=== PATIENT | female | born 1950 | race Caucasian/White ===

== ENCOUNTER → 2016-08-01 | Outpatient (CLI) | payer OTHER ==
[~2016-08-01] MED LIST: ALBUAER2 INH; AMLO-114 PO; AMT50 PO; ASPCH81X PO; CRS20 PO; CYCL-259 PO; CZR50 PO; FRS/40 PO; GLC500 PO; HYDR-5688 PO; INSU70IN2 SC; LEVO75TA PO
[2016-08-01 10:44] LABS: BASO % 0.5 %; BASO ABS # 0.02 K/uL (0-0.2); COMPLETE YES; EOS % 3.4 %; HEMATOCRIT 36.8 % (37-47); IG% 0.2 %; LYMPH % 39.1 %; LYMPH ABS # 1.62 K/uL (1.2-3.4); MEAN CELL VOLUME 80.5 fL (80-100); MEAN CORPUSCULAR HEMOGLOBIN 25.4 pg (25-34); MEAN CORPUSCULAR HGB CONC 31.5 g/dl (32-36); MEAN PLATELET VOLUME 10.4 fL (7.4-10.4); MONO % 6.8 %; PLATELET COUNT 204 K/uL (130-400); RED BLOOD COUNT 4.57 M/uL (4.2-5.4); WHITE BLOOD COUNT 4.14 K/uL (4.8-10.8)
[2016-08-01 11:39] LABS: ALB/GLOB RATIO 1.2 (0.9-2); ALKALINE PHOSPHATASE 77 U/L (45-117); ALT/SGPT 25 U/L (12-78); AST/SGOT 19 U/L (15-37); BLOOD UREA NITROGEN 16 mg/dl (7-18); BUN/CREATININE RATIO 23.5 (10-20); CALCIUM 9.1 mg/dl (8.5-10.1); CARBON DIOXIDE 27 mmol/L (21-32); CHLORIDE 107 mmol/L (98-107); CHOLESTEROL 171 mg/dl (0-200); CREATININE 0.66 mg/dl (0.60-1.20); GLUCOSE 92 mg/dl (70-99); SODIUM 143 mmol/L (136-145)
[2016-08-01 11:48] LABS: CHOLESTEROL/HDL RATIO 2.2; HDL CHOLESTEROL 78 mg/dl; LDL CHOLESTEROL CALCULATED 72 mg/dl; TRIGLYCERIDES 105 mg/dl (0-150); VERY LOW DENSITY LIPOPROT CALC 21 mg/dl
== END | disposition home or self-care (01) ==
LOC: C.LAB1850 09:51
PROVIDERS: ATTEND Nurse Practitioner Adult Health
DX: E03.9 Hypothyroidism, unspecified (principal); I10 Essential (primary) hypertension; E78.00 Pure hypercholesterolemia, unspecified

== ENCOUNTER → 2016-10-04 | Outpatient (CLI) | payer OTHER ==
--- NOTE | 2016-10-04 13:58 | MAMMOGRAPHY REPORT ---
BILATERAL DIGITAL SCREENING MAMMOGRAM WITH CAD: 10/04/2016 CLINICAL HISTORY: Routine screening. Patient has no complaints. TECHNIQUE: Current study was also evaluated with a Computer Aided Detection (CAD) system. Bilateral CC and MLO views were obtained. COMPARISON: Comparison is made to exams dated: 08/23/2014 mammogram, 06/04/2013 mammogram, 05/15/2011 m ammogram, 12/13/2009 mammogram - [facility], 02/10/2008, and 10/21/2005 mammogram - [facility]. BREAST COMPOSITION: The tissue of both breasts is almost entirely fatty. FINDINGS: No suspicious masses, calcifications, or areas of architectural distortion are noted in ei ther breast. There has been no significant interval change compared to prior exams. Scattered bilater al benign-appearing calcifications are not significantly changed. Small nodular asymmetry in the rig ht lateral posterior breast on the cc view appears similar to the August 2014 exam, and considered dennis gn given long-term stability. IMPRESSION: ACR BI-RADS CATEGORY 2: BENIGN There is no mammographic evidence of malignancy. A 1 year screening mammogram is recommended. The pa tient will receive written notification of the results. Approximately 10% of breast cancers are not detected with mammography. A negative mammographic report should not delay biopsy if a clinically suggestive mass is present. Cele Currie M.D. /:10/04/2016 11:35:39 Will Call Clerk: Karen SMITH)(Gabino), [facility] letter sent: Normal 1/2 BI-RADS Code: ACR BI-RADS Category 2: Benign
== END | disposition home or self-care (01) ==
LOC: C.MAMM 11:12
PROVIDERS: ATTEND Nurse Practitioner Adult Health
DX: Z12.31 Encounter for screening mammogram for malignant neoplasm of breast (principal)

== ENCOUNTER → 2016-11-12 | Outpatient (CLI) | payer OTHER ==
[2016-11-12 10:03] LABS: ALT/SGPT 24 U/L (12-78); BLOOD UREA NITROGEN 10 mg/dl (7-18); BUN/CREATININE RATIO 14.2 (10-20); CALCIUM 9.5 mg/dl (8.5-10.1); CARBON DIOXIDE 27 mmol/L (21-32); CHLORIDE 103 mmol/L (98-107); CHOLESTEROL 175 mg/dl (0-200); CREATININE 0.71 mg/dl (0.60-1.20); GLUCOSE 84 mg/dl (70-99); POTASSIUM 3.5 mmol/L (3.5-5.1); SODIUM 139 mmol/L (136-145)
[2016-11-12 10:13] LABS: ALB/GLOB RATIO 1.3 (0.9-2); ALKALINE PHOSPHATASE 83 U/L (45-117); AST/SGOT 25 U/L (15-37); CHOLESTEROL/HDL RATIO 1.8; HDL CHOLESTEROL 96 mg/dl; LDL CHOLESTEROL CALCULATED 62 mg/dl; TRIGLYCERIDES 86 mg/dl (0-150); VERY LOW DENSITY LIPOPROT CALC 17 mg/dl
[2016-11-12 10:26] LABS: ESTIMATED AVERAGE GLUCOSE 120 mg/dl; HA1C FLAG Normal (Normal)
== END | disposition home or self-care (01) ==
LOC: C.LAB1850 08:28
PROVIDERS: ATTEND Nurse Practitioner Adult Health
DX: I10 Essential (primary) hypertension (principal); E78.00 Pure hypercholesterolemia, unspecified; E03.9 Hypothyroidism, unspecified; E11.9 Type 2 diabetes mellitus without complications

== ENCOUNTER → 2016-12-23 | Outpatient (CLI) | payer OTHER | END | disposition home or self-care (01) | LOC: C.MAMM 11:09 | PROVIDERS: ATTEND Nurse Practitioner Adult Health | DX: Z13.820 Encounter for screening for osteoporosis (principal); M85.851 Other specified disorders of bone density and structure, right thigh; M85.852 Other specified disorders of bone density and structure, left thigh ==

== ENCOUNTER → 2017-04-25 | Outpatient (CLI) | payer OTHER ==
[2017-04-25 09:52] LABS: HEMOGLOBIN A1C 6.1 % (4.5-5.6)
[2017-04-25 09:57] LABS: BLOOD UREA NITROGEN 14 mg/dl (7-18); CREATININE 0.74 mg/dl (0.60-1.20); GLUCOSE 128 mg/dl (70-99)
[2017-04-25 09:58] LABS: ALBUMIN 3.9 gm/dl (3.4-5.0); ALT/SGPT 28 U/L (12-78); CARBON DIOXIDE 28 mmol/L (21-32); CHOLESTEROL 155 mg/dl (0-200); POTASSIUM 3.7 mmol/L (3.5-5.1); SODIUM 137 mmol/L (136-145)
[2017-04-25 10:10] LABS: ALKALINE PHOSPHATASE 76 U/L (45-117); AST/SGOT 22 U/L (15-37); LDL CHOLESTEROL CALCULATED 70 mg/dl; TOTAL PROTEIN 7.4 gm/dl (6.4-8.2)
== END | disposition home or self-care (01) ==
LOC: C.LAB1850 08:31
PROVIDERS: ATTEND Neuromusculoskeletal Medicine & OMM
DX: E78.00 Pure hypercholesterolemia, unspecified (principal); I10 Essential (primary) hypertension; E11.9 Type 2 diabetes mellitus without complications; E03.9 Hypothyroidism, unspecified

== ENCOUNTER 2019-11-12 04:55 | Inpatient (IN) ==
--- NOTE | 2019-10-13 16:05 | PAT Medication Instructions ---
Medication Instructions Date of Service October 13, 2019 Home Medications Medication Instructions Recorded amlodipine 10 mg tablet 10 mg PO DAILY #90 tab 11/18/18 atorvastatin 80 mg tablet 80 mg PO HS #90 tab 11/18/18 furosemide 40 mg tablet 40 mg PO DAILY #90 tab 11/18/18 levothyroxine 75 mcg tablet 75 mcg PO DAILY #90 tab 11/18/18 metformin 1,000 mg tablet 1,000 mg PO BID #180 tab 11/18/18 blood sugar diagnostic #100 ea 02/09/19 insulin human U-100 NPH-regulr 16 units SUBCUT BIDM #20 ml 02/09/19 70-30 mix 100 unit/mL subcutaneous susp amitriptyline 75 mg tablet 75 mg PO HS #90 tab 05/12/19 losartan 100 mg tablet 100 mg PO DAILY #90 tab 05/21/19 hydrocodone 5 mg-acetaminophen 325 1 tab PO TID PRN #90 tab 09/24/19 mg tablet albuterol sulfate 90 mcg/actuation aerosol inhaler 2 puffs INHALATION QID PRN aspirin 81 mg tablet,delayed release 81 mg PO HS amlodipine 10 mg tablet 10 mg PO DAILY atorvastatin 80 mg tablet 80 mg PO HS furosemide 40 mg tablet 40 mg PO DAILY levothyroxine 75 mcg tablet 75 mcg PO DAILY metformin 1,000 mg tablet 1,000 mg PO BID insulin human U-100 NPH-regulr 70-30 mix 100 unit/mL subcutaneous susp 16 units SUBCUT BIDM amitriptyline 75 mg tablet 75 mg PO HS losartan 100 mg tablet 100 mg PO DAILY hydrocodone 5 mg-acetaminophen 325 mg tablet 1 tab PO TID PRN ascorbic acid (vitamin C) 500 mg PO QAM calcium 600 mg PO BID cholecalciferol (vitamin D3) 25 mcg PO QAM multivitamin-iron (hematinic) 1 tab PO HS zinc 25 mg PO HS DO NOT take the morning of surgery furosemide 40 mg tablet 40 mg PO DAILY metformin 1,000 mg tablet 1,000 mg PO BID losartan 100 mg tablet 100 mg PO DAILY ascorbic acid (vitamin C) 500 mg PO QAM calcium 600 mg PO BID cholecalciferol (vitamin D3) 25 mcg PO QAM Take morning of surgery With a small sip of water, OTHERWISE NOTHING TO EAT OR DRINK AFTER MIDNIGHT: albuterol sulfate 90 mcg/actuation aerosol inhaler 2 puffs INHALATION QID PRN (if needed, and bring with you to the hospital) amlodipine 10 mg tablet 10 mg PO DAILY levothyroxine 75 mcg tablet 75 mcg PO DAILY hydrocodone 5 mg-acetaminophen 325 mg tablet 1 tab PO TID PRN (if needed, may be taken up to four hours before surgery) Take evening before surgery albuterol sulfate 90 mcg/actuation aerosol inhaler 2 puffs INHALATION QID PRN (if needed) aspirin 81 mg tablet,delayed release 81 mg PO HS atorvastatin 80 mg tablet 80 mg PO HS metformin 1,000 mg tablet 1,000 mg PO BID insulin human U-100 NPH-regulr 70-30 mix 100 unit/mL subcutaneous susp 16 units SUBCUT BIDM amitriptyline 75 mg tablet 75 mg PO HS hydrocodone 5 mg-acetaminophen 325 mg tablet 1 tab PO TID PRN (if needed) calcium 600 mg PO BID multivitamin-iron (hematinic) 1 tab PO HS zinc 25 mg PO HS Insulin Dependent Diabetic Patients * Test your blood sugar the morning of surgery * If Blood Sugar is GREATER THAN 150, take HALF of your regular dose of: insulin human U-100 NPH-regulr 70-30 mix 100 unit/mL subcutaneous -- TAKE 8 UNITS * If Blood Sugar is LESS THAN 150, DO NOT TAKE ANY: insulin human U-100 NPH- regulr 70-30 mix 100 unit/mL subcutaneous susp Other Notes If you have any questions please call us at [phone] or [phone] or [phone] or [phone]
--- NOTE | 2019-10-14 11:04 | Anesthesiology Consultation ---
Date of Service October 14, 2019 Assessment & Plan (1) Encounter for pre-operative examination: Chart Review Chart Review: Acceptable Risk for Surgery (pending preop Covid testing ) and Patient seen in Pre Admission Testing - Check BSG AM DOS Per PAT appt on 10/14/19, no recent travel. Resides in [facility]. No known Covid positive contacts or Covid related symptoms. Educated patient to follow up with surgeon's office regarding Covid testing. Educated on importance of self quarantining, social distancing and wearing mask in public both for the patient and household contacts. Teaching & Discussion Pre-Anesthesia Teaching/Discussion Notes: Instructed NPO after midnight before surgery,except medications with 15 cc of water. Medication instructions provided according to the PAT guidelines. History Surgery Operation Date: 11/12/19 08:50 Proposed Procedures p Left Reverse Total Shoulder Arthroplasty - Leonard Alvarado, Height/Weight Height: 5 ft 1 in Weight: 99.7 kg Allergies Allergy/AdvReac Type Severity Reaction Status Date / Time Penicillins Allergy Severe throat Verified 10/07/19 08:05 swelled hydrochlorothiazide Allergy Intermediate ELEVATED Verified 10/07/19 08:06 RENIN LEVELS Influenza Virus Vaccines Allergy Intermediate ARMS Verified 10/07/19 08:05 SWELLING/LYMPH NODES SWELLING naproxen Allergy Intermediate elevated Verified 10/07/19 08:05 renin levels sumatriptan Allergy Intermediate bp Verified 10/07/19 08:05 elevated, tachycardia dexamethasone AdvReac Severe SEIZURES Verified 10/07/19 08:05 Medications Home Medications Medication Instructions Recorded Confirmed Last Taken insulin syringe-needle U-100 1 mL #1 ea 08/24/18 07/15/19 Unknown 29 gauge x 1/2" albuterol sulfate 90 mcg/actuation 2 puffs INHALATION QID PRN gm 11/17/18 10/07/19 Unknown aerosol inhaler aspirin 81 mg tablet,delayed 81 mg PO HS tab 11/17/18 10/07/19 Unknown release amlodipine 10 mg tablet 10 mg PO DAILY #90 tab 11/18/18 10/07/19 Unknown atorvastatin 80 mg tablet 80 mg PO HS #90 tab 11/18/18 10/07/19 Unknown furosemide 40 mg tablet 40 mg PO DAILY #90 tab 11/18/18 10/07/19 Unknown levothyroxine 75 mcg tablet 75 mcg PO DAILY #90 tab 11/18/18 10/07/19 Unknown metformin 1,000 mg tablet 1,000 mg PO BID #180 tab 11/18/18 10/07/19 Unknown blood sugar diagnostic #100 ea 02/09/19 07/15/19 Unknown insulin human U-100 NPH-regulr 16 units SUBCUT BIDM #20 ml 02/09/19 10/07/19 Unknown 70-30 mix 100 unit/mL subcutaneous susp amitriptyline 75 mg tablet 75 mg PO HS #90 tab 05/12/19 10/07/19 Unknown losartan 100 mg tablet 100 mg PO DAILY #90 tab 05/21/19 10/07/19 Unknown hydrocodone 5 mg-acetaminophen 325 1 tab PO TID PRN #90 tab 09/24/19 10/07/19 Unknown mg tablet ascorbic acid (vitamin C) [Vitamin 500 mg PO QAM 10/07/19 10/07/19 Unknown C] calcium 600 mg PO BID 10/07/19 10/07/19 Unknown cholecalciferol (vitamin D3) 25 mcg PO QAM 10/07/19 10/07/19 Unknown [Vitamin D3] multivitamin-iron (hematinic) 1 tab PO HS 10/07/19 10/07/19 Unknown zinc 25 mg PO HS 10/07/19 10/07/19 Unknown Past Medical History Medical History Asthma USED RESCUE INHALER LAST YEAR- WELL CONTROLLED AND STABLE Bicuspid aortic valve Suspected biscuspid AV per 2015 ECHO- no significant stenosis noted Cardiac murmur DOES NOT FOLLOW WITH CARDIO- PRESENT >10 YEARS - ECHO done in 2014 showed no significant issues with exception to suspected bicuspid AV without noted stenosis Degenerative disc disease Diabetes mellitus, type 2 WELL CONTROLLED AND STABLE Fibromyalgia NO RECENT FLARES- STABLE PAIN History of anxiety History of brain tumor S/P REMOVAL - BENIGN Hyperlipidemia Hypertension Hypothyroidism Migraine Peripheral neuropathy BILATERAL FEET - SENSITIVE TO THE TOUCH Seizure LAST EVENT 1972 (HX BRAIN TUMOR)- NO ISSUES SINCE THAT TIME Stage 3 chronic kidney disease Temporomandibular joint disorder NO LOCKING- OCC CLICKING Exercise / Class Metabolic Activity III < 4 Walking/Shop/Light housework (NO CHEST PAIN OR SOB WITH FLAT SURFACE AMBULATION ) Past Family History Family History Grandfather Colorectal cancer Mother Myocardial infarction Family history of diabetes mellitus Unknown Ovarian cancer Sister Congestive heart failure Father Esophageal cancer Denies family history of Prostate cancer Breast cancer Past Surgical History Surgical History H/O colonoscopy 01/23/15 H/O craniotomy 1969 BRAIN TUMOR REMOVED H/O knee surgery LEFT X 2 History of appendectomy History of back surgery (~2012) L3-L4 lumbar decompression and fusion History of carpal tunnel surgery RT/LEFT History of repair of rotator cuff RT History of tonsillectomy and adenoidectomy History of tooth extraction Past Anesthesia History No Hx of Anesthesia Complications and No Family Hx of Anesthesia Complications History of PONV No Hx of PONV and No Hx of Motion Sickness Social History Smoking Status: Former smoker tobacco type: cigarettes Do You Dip or Chew Tobacco: No Smoking End Date: 1978 Hx Alcohol Use: No Hx Substance Use: No substance use type: does not use Review of Systems Patient denies chest pain, shortness of breath, dyspnea on exertion, reflux, cough, wheezing, palpitations. No hx of stroke, AK, apnea/snoring. No hx of blood clots or blood transfusions Physical Exam Vital Signs VITALS BP 102/69 P 64 TEMP 98.2 SP02 95% RESP 16 Constitutional no acute distress ENMT Mouth: no TMJ clicking Thyromental Distance: < 3.5 Finger Breadths (3.0) Mallampati Class: I (smaller airways ) Missing molars Neck + short neck and + thick neck; neck extension not limited Respiratory normal respiratory effort; no respiratory distress Auscultation: lungs clear to auscultation bilaterally; no wheezes Cardiovascular Rate/Rhythm: regular rate and regular rhythm Heart Sounds: + murmur (II/ murmur ) Vessels: no carotid bruit Musculoskeletal Spine: no pain with cervical ROM Neurologic moves all extremities Psychiatric Orientation: alert Testing Laboratory Results 10/14/19 11:19 10/14/19 11:19 PT 11.0 Seconds (9.0-12.0) 10/14/19 11:19 INR 1.0 (0.9-1.1) 10/14/19 11:19 APTT 26.2 Seconds (21.0-31.0) 10/14/19 11:19 Blood Type O Positive 10/14/19 11:19 Antibody Screen NEGATIVE 10/14/19 11:19 09/10/19= HGB A1C: 5.8 Electrocardiogram Date: 10/14/19 NSR with sinus arrhythmia at 65 bpm. When compared to EKG from Mar 01, 2014- no significant change per cardio. Chest X-Ray Date: 10/14/19 Findings: + NAD Echocardiogram Date: 09/06/14 EF: 65-70% LV Function: normal RWMA: + none Other Findings: + LVH (mild/concentric ) Grade I diastolic dysfunction. Suspect bicuspid AV- aortic valve sclerosis without stenosis. Moderate mitral annular calcification.
--- NOTE | 2019-10-14 12:00 | XRay Report ---
XR chest Pre-admission PA/Lat CLINICAL HISTORY: Preoperative chest COMPARISON STUDY: 12/30/2012 FINDINGS: The cardiac and mediastinal contours are normal. There is no evidence of focal pulmonary co nsolidation. There is no evidence of failure. No pleural effusions are visualized.[ IMPRESSION: No active disease in the chest. ACT 112: Negative or not required by law. Electronically signed by: Bud Alarcon M.D. 10/14/2019 11:58 AM
[2019-10-14 12:03] LABS: Basophils # (auto) 0.01 K/uL (0-0.2); Basophils % (auto) 0.2 %; Eosinophils # (auto) 0.16 K/uL (0-0.5); Eosinophils % (auto) 3.3 %; Hematocrit (blood only) 38.1 % (37-47); Hemoglobin 12.7 g/dL (12.0-16.0); Lymphocytes # (auto) 1.83 K/uL (1.2-3.4); Lymphocytes % (auto) 37.4 %; Mean Corpuscular Hemoglobin 29.7 pg (25-34); Mean Corpuscular Hgb Conc 33.3 g/dL (32-36); Mean Platelet Volume 10.8 fL (7.4-10.4); Monocytes # (auto) 0.42 K/uL (0.11-0.59); Monocytes % (auto) 8.6 %; Neutrophils # (auto) 2.47 K/uL (1.4-6.5); Neutrophils % (auto) 50.5 %; Platelet Count 216 K/uL (130-400); RDW Coefficient of Variation 13.1 % (11.5-14.5); RDW Standard Deviation 42.1 fL (36.4-46.3); Red Blood Count 4.28 M/uL (4.2-5.4); White Blood Count 4.89 K/uL (4.8-10.8)
[2019-10-14 12:14] LABS: BUN Creatinine Ratio 19.4 (10-20); Calcium 9.6 mg/dl (8.5-10.1); Creatinine Clr Calc Pharmacy 69.4 ml/min; Est GFR (African American) 82.8; Est GFR (Non-African American) 71.4; Potassium 3.7 mmol/L (3.5-5.1)
[2019-10-14 12:15] LABS: Partial Thromboplastin Ratio 0.9; Partial Thromboplastin Time 26.2 Seconds (21.0-31.0)
--- NOTE | 2019-10-15 05:36 | Electrocardiogram Report ---
Test Reason : Blood Pressure : / mmHG Vent. Rate : 065 BPM Atrial Rate : 069 BPM P-R Int : 196 ms QRS Dur : 098 ms QT Int : 428 ms P-R-T Axes : 064 067 037 degrees QTc Int : 445 ms Normal sinus rhythm with sinus arrhythmia Normal ECG When compared with ECG of 01-MAR-2014 17:08, No significant change was found Confirmed by Bryn Rodrigues ([id number]) on 10/15/2019 5:36:17 AM Referred By: Leonard Alvarado Confirmed By:Bryn Rodrigues
--- NOTE | 2019-11-11 06:48 | History & Physical Report ---
Date of Service November 11, 2019 Assessment & Plan (1) Rotator cuff tear arthropathy of left shoulder: We will proceed with a left reverse shoulder arthroplasty. Postoperatively she will be placed in a sling and kept overnight in the hospital for postoperative medical management. She plans to use energy physical therapy upon discharge. Present on Admission?: Yes History of Present Illness Chief Complaint: Rotator cuff arthropathy of the left shoulder Primary Care Provider: Tre Dean DO [place] is a pleasant 68-year-old female who is been dealing with a several month history of severe left shoulder pain and paralysis. She simply reached over in bed to pet her cat when she began having the shoulder pain. It is quite severe. She is unable to forward elevate her shoulder. I sent her for an MRI which showed a massive retracted rotator cuff tear with severe atrophy of the muscle bellies. After failing conservative treatment, she has elected to proceed with a reverse left shoulder arthroplasty. Allergies Allergy/AdvReac Type Severity Reaction Status Date / Time Penicillins Allergy Severe throat Verified 10/20/19 08:58 swelled hydrochlorothiazide Allergy Intermediate ELEVATED Verified 10/20/19 08:58 RENIN LEVELS Influenza Virus Vaccines Allergy Intermediate ARMS Verified 10/20/19 08:58 SWELLING/LYMPH NODES SWELLING naproxen Allergy Intermediate elevated Verified 10/20/19 08:58 renin levels sumatriptan Allergy Intermediate bp Verified 10/20/19 08:58 elevated, tachycardia dexamethasone AdvReac Severe SEIZURES Verified 10/20/19 08:58 Home Medications Home Medications Medication Instructions Recorded Confirmed Type insulin syringe-needle U-100 1 mL #1 ea 08/24/18 10/20/19 History 29 gauge x 1/2" aspirin 81 mg tablet,delayed 81 mg PO HS tab 11/17/18 10/20/19 History release insulin human U-100 NPH-regulr 16 units SUBCUT BIDM #20 ml 02/09/19 10/20/19 Rx 70-30 mix 100 unit/mL subcutaneous susp ascorbic acid (vitamin C) [Vitamin 500 mg PO QAM 10/07/19 10/20/19 History C] calcium 600 mg PO BID 10/07/19 10/20/19 History cholecalciferol (vitamin D3) 25 mcg PO QAM 10/07/19 10/20/19 History [Vitamin D3] multivitamin-iron (hematinic) 1 tab PO HS 10/07/19 10/20/19 History zinc 25 mg PO HS 10/07/19 10/20/19 History albuterol sulfate 90 mcg/actuation 2 puff INHALATION QID PRN #18 g 10/20/19 10/20/19 Rx aerosol inhaler hydrocodone 5 mg-acetaminophen 325 1 tab PO TID PRN #90 tab 10/20/19 10/20/19 Rx mg tablet amitriptyline 75 mg tablet 75 mg PO HS #90 tab 11/02/19 Rx amlodipine 10 mg tablet 10 mg PO DAILY #90 tab 11/02/19 Rx atorvastatin 80 mg tablet 80 mg PO HS #90 tab 11/02/19 Rx furosemide 40 mg tablet 40 mg PO DAILY #90 tab 11/02/19 Rx levothyroxine 75 mcg tablet 75 mcg PO DAILY #90 tab 11/02/19 Rx losartan 100 mg tablet 100 mg PO DAILY #90 tab 11/02/19 Rx metformin 1,000 mg tablet 1,000 mg PO BID #180 tab 11/02/19 Rx blood sugar diagnostic #100 ea 11/03/19 Rx Past Med/Surg History Medical History Bicuspid aortic valve Suspected biscuspid AV per 2015 ECHO- no significant stenosis noted Cardiac murmur DOES NOT FOLLOW WITH CARDIO- PRESENT >10 YEARS - ECHO done in 2014 showed no significant issues with exception to suspected bicuspid AV without noted stenosis Degenerative disc disease Diabetes mellitus, type 2 WELL CONTROLLED AND STABLE Fibromyalgia NO RECENT FLARES- STABLE PAIN History of anxiety History of brain tumor S/P REMOVAL - BENIGN Hyperlipidemia Hypertension Hypothyroidism Migraine Peripheral neuropathy BILATERAL FEET - SENSITIVE TO THE TOUCH Seizure LAST EVENT 1972 (HX BRAIN TUMOR)- NO ISSUES SINCE THAT TIME Stage 3 chronic kidney disease Temporomandibular joint disorder NO LOCKING- OCC CLICKING Surgical History H/O colonoscopy 01/23/15 H/O craniotomy 1969 BRAIN TUMOR REMOVED H/O knee surgery LEFT X 2 History of appendectomy History of back surgery (~2012) L3-L4 lumbar decompression and fusion History of carpal tunnel surgery RT/LEFT History of repair of rotator cuff RT History of tonsillectomy and adenoidectomy History of tooth extraction Family History Grandfather Colorectal cancer Mother Myocardial infarction Family history of diabetes mellitus Unknown Ovarian cancer Sister Congestive heart failure Father Esophageal cancer Denies family history of Prostate cancer Breast cancer Social History Smoking Status: Former smoker Second Hand Exposure: No; Hx Alcohol Use: No Hx Substance Use: No Preferred Language: Kazakh Visual Impairment: No Limitations Hearing Ability: Normal Consulting Technical Director Required: No Beliefs That Will Affect Care: None marital status: Current Living Situation: Alone Current Living Situation Comment: Lives alone with 3 cats current occupational status: retired Feels Safe at Home: Yes Childhood Exposure to Second-Hand Smoke: Yes Dental Care, Regularly: Yes Physical Activity Frequency: 1-2 Times per Week Seatbelt Use: always Review of Systems Review of Systems: All systems reviewed & are unremarkable except as noted in HPI & below Physical Exam Constitutional: WD/WN, vitals as above Eyes: PERRL, conjunctivae normal, anicteric sclerae ENMT: external ear and nose normal, oropharynx normal Neck: trachea midline, no thyromegaly Respiratory: normal respiratory effort Cardiovascular: RRR, no murmur, no edema Gastrointestinal (Abdomen): normal bowel sounds, soft, nontender, no hepat osplenomegaly Musculoskeletal: Physical examination of the left shoulder reveals decreased range of motion and significant weakness. There is tenderness palpation along the anterior glenohumeral joint line. The right upper extremity is neurovascularly intact. Psychiatric: A+Ox3, euthymic affect Results & Data Results & Data ([facility] [place]) Diagnostic Findings Radiographs of the left shoulder show some signs of osteoarthritis with blunting of the greater tuberosity and some superior migration of the humeral head on the glenoid. PG Care Time/CCT Total # of Minutes Spent Total Time Spent with Patient: Total time spent is greater than 50% in coordination of care (as documented) at patient's floor/unit and/or counseling patient: Coding Level of Care Code 05685 Initial Inpt Care Lvl 2 Diagnoses Rotator cuff tear arthropathy of left shoulder M75.102; M12.812
[~2019-11-12 04:55] MED LIST changes: -ALBUAER2 INH; -AMLO-114 PO; -AMT50 PO; -ASPCH81X PO; -CRS20 PO; -CYCL-259 PO; -CZR50 PO; -FRS/40 PO; -GLC500 PO; -HYDR-5688 PO; -INSU70IN2 SC; -LEVO75TA PO; +[UNRECOGNIZED DRUG - REMARK] SCH
[2019-11-12] MEDS ORDERED: ROPIVACAINE 0.5% HCL/PF 150 MG, BUPIVACAINE 0.5% MPF 30 ML, EPINEPHrine 30MG/30ML (OR U... INSTIL SCH (06:00)
[2019-11-12] MEDS ORDERED: GABAPENTIN 300 MG CAP PO SCH (06:00)
[2019-11-12] MEDS ORDERED: LR 60ML/HR IV SCH (06:00)
[2019-11-12] MEDS ORDERED: FAMOTIDINE 20 MG TAB PO SCH (06:00)
[2019-11-12] MEDS ORDERED: TRANEXAMIC ACID 1,000 MG **IV Intra-op IV SCH (06:00)
[2019-11-12] MEDS ORDERED: LR 15ML/HR IV SCH (06:00)
[2019-11-12] MEDS ORDERED: CEFAZOLIN 2000MG 2,000 MG/15 ML SYR IV SCH (06:00)
[2019-11-12] MEDS ORDERED: TRANEXAMIC ACID 1,000 MG **IV Pre-op IV SCH (06:00)
[2019-11-12] MEDS ORDERED: ACETAMINOPHEN 500 MG TAB PO SCH (06:00)
[2019-11-12] MEDS ORDERED: BUPIVACAINE 0.5 % 5 MG/1 ML PF 10ML VIAL ONE (06:18)
[2019-11-12] MEDS ORDERED: ORTHO JOINT ANESTHETIC ONE (06:32)
[2019-11-12] MEDS ORDERED: ONDANSETRON INJ 2 MG/ML 2 ML VIAL IV PRN ×2 (06:44→09:50)
[2019-11-12] MEDS ORDERED: ATROPINE SULFATE 0.1 MG/ML 10ML SYR IV PRN (06:44)
[2019-11-12] MEDS ORDERED: HYDROmorphone INJ 1 MG/ML SYRINGE IV PRN (06:44)
[2019-11-12] MEDS ORDERED: MIDAZOLAM HCL 1 MG/ML 2ML VIAL ONE (06:45)
--- NOTE | 2019-11-12 06:47 | History & Physical Bridge Note ---
Date of Service November 12, 2019 History & Physical Bridge Note I have examined the patient, reviewed the History & Physical and in the interval since the performance of the History & Physical I have noted the following changes of clinical significance: no changes noted
[2019-11-12] MEDS ORDERED: fentaNYL citrate 100 MCG/2 ML VIAL ONE ×2 (06:51→08:30)
[2019-11-12] MEDS ORDERED: PROPOFOL IV EMULSION 10 MG/ML 20 ML VIAL IV ONE (07:39)
[2019-11-12] MEDS ORDERED: ePHEDrine sulfate 50 MG/ML SYR ONE (07:39)
[2019-11-12] MEDS ORDERED: ONDANSETRON INJ 2 MG/ML 2 ML VIAL ONE (07:39)
[2019-11-12] MEDS ORDERED: GLYCOPYRROLATE 0.2 MG/ML VIAL ONE (07:39)
[2019-11-12] MEDS ORDERED: NEOSTIGMINE METHYLSULFATE 5 MG/5 ML SYR ONE (07:39)
[2019-11-12] MEDS ORDERED: LIDOCAINE HCL 2% 2 ML VIAL/AMP(20MG/ML) INFIL ONE (07:39)
--- NOTE | 2019-11-12 08:22 | Operative Report ---
PG Post Operative Report Pre & Post Diagnosis Operation Date: 11/12/19 07:00 Pre-Op Diagnosis: Left Shoulder rotator cuff arthropathy with tendinopathy of the long head of the biceps tendon Post-Op Diagnosis: Left Shoulder rotator cuff arthropathy with tendinopathy long head of the biceps tendon I identified the patient and participated in the time-out.: Yes Procedure Operation Date: 11/12/19 07:00 Actual Procedures p Left Reverse Total Shoulder Arthroplasty with open biceps tenodesis as a distinct and separate procedure (modifier 59) (Left) - Leonard Alvarado DO Surgeon Leonard Alvarado DO Car Pilot Leonard Willoughby PAC Estimated Blood Loss 250 Findings Consistent with Post-Op Diagnosis Specimens Left humeral head Complications none Disposition Disposition: Recovery Room Indications Sahara is a pleasant 68-year-old female who reached over to pet her cat and tore her left rotator cuff. MRI and clinical examination were diagnostic for large retracted rotator cuff tear. It appeared a large portion of it was chronic. After failing conservative treatment, she elected proceed with a left reverse shoulder arthroplasty. Description of Procedure A CPT code modifier 59: The long head of the biceps tendon was enlarged and inflamed consistent with tendinopathy. A tenodesis was opted. This was a separate and distinct portion of the procedure. For these reasons, a CPT code modifier 59 will be added to this case. Implants used: I used a Biomet Comprehensive reverse total shoulder arthroplasty system with a size 11 press fit micro humeral stem, a +6 humeral tray and a standard humeral bearing, a 25 mm small augment baseplate with a 6.5 mm central screw and superior and inferior locking screws, and a size 36 mm eccentric glenosphere. Sahara arrived at [facility] for the above procedure. She was seen in the preoperative holding area and the operative extremity was identified and signed. She was given a preoperative antibiotic, TXA, and an interscalene nerve block. She was taken back to the operating room, laid on table in supine position, and put under general anesthesia. She was then put into the beachchair position. The shoulder was then prepped and draped in sterile fashion. A timeout was done and the patient and the operative extremity was properly identified. A deltopectoral approach was used. Dissection was taken down through the fascia and the deltoid was retracted laterally and the conjoined tendon was retracted medially. The anterior shoulder was exposed. The biceps groove was opened up and the biceps tendon was examined extensively. The biceps tendon demonstrated enlargement and inflammatory changes consistent with longstanding inflammation in the context of osteoarthritis and cuff arthropathy. The long head of the biceps tendon was then tenodesed to the upper border of the pectoralis major. This was a separate and distinct portion of the procedure. The subscapularis was then directly released off the lesser tuberosity with a peel technique. The inferior capsule was released and the humeral head was dislocated. A canal finding reamer was sent down the center of the humeral canal. S equential reaming up to a size 11 reamer was done. Off that reamer, a proximal humeral resection guide was placed. The proximal humerus was resected at 135 of inclination and 25 of retroversion. Osteophytes were then removed and the glenoid was exposed. Time was spent doing a complete capsular and labral release. The glenoid guide was then placed in the inferior aspect of the glenoid. A 3.2 mm Steinmann pin was then placed into the glenoid vault at 10 of inclination. The glenoid baseplate was then reamed. The final size 25 mm small augment baseplate was then impacted in the place. A 6.5 mm central screw was then placed followed by superior and inferior locking screws. A 36 mm eccentric glenosphere was then impacted into place. Surrounding soft tissues were then injected with 100 cc an orthopedic pain control cocktail. The proximal humerus was then exposed. Sequential broaching of the humerus up to a size 11 broach was done. Off that broach a +6 humeral tray was trialed. The shoulder was then reduced, brought through a full range of motion, and felt to be stable. The shoulder was then dislocated and the broach was removed. The final size 11 micro press-fit humeral stem was then impacted into place. A standard humeral bearing was then snapped onto a +6 humeral tray. The humeral tray was then impacted onto the humeral stem. The shoulder was once again reduced, brought through a full range of motion, and felt to be stable. The subscapularis was then tenodesed back to the lesser tuberosity with transosseous FiberWire sutures and side to side sutures with the arm in 45 of external rotation. A dilute betadyne lavage was then done for 3 minutes. The joint was then irrigated with normal saline solution. Hemostasis was obtained. The interval was closed with 2-0 Vicryl suture. The skin was then closed with 2-0 Vicryl and kerri. A Silverlon dressing was placed and the arm was rested in a regular arm sling. She was then extubated and transferred to a hospital bed. She taken to the postanesthesia care unit in stable condition. She tolerated the procedure well. Leonard Willoughby PA-C, was present for the entire procedure. He was critical for pa tient positioning, prepping, draping, retraction exposure, wound closure and application of sterile dressing. I attest to the content of the Intraoperative Record and any orders documented therein. Any exceptions are noted below.
[2019-11-12] MEDS ORDERED: ROCURONIUM BROMIDE 10 MG/ML 5 ML VIAL IV ONE (08:27)
[2019-11-12] MEDS ORDERED: ePHEDrine sulfate 50 MG/ML AMP ONE (08:27)
--- NOTE | 2019-11-12 09:13 | XRay Report ---
XR shoulder LT min 2V routine CLINICAL HISTORY: Post shoulder surgery COMPARISON: MRI of the left shoulder September 10, 2019. FINDINGS: Alignment of the left shoulder arthroplasty is anatomic. There is no periprosthetic fractu re or unexpected radiopaque foreign body. IMPRESSION: Expected findings following left shoulder arthroplasty. ACT 112: Negative or not required by law. Electronically signed by: Chaitanya Clemente M.D. 11/12/2019 9:12 AM
[2019-11-12] MEDS ORDERED: NALOXONE HCL 0.4 MG/1 ML VIAL/CARP IV PRN (09:50)
[2019-11-12] MEDS ORDERED: MAGNESIUM HYDROXIDE SUSP 30 ML UDC PO PRN (09:50)
[2019-11-12] MEDS ORDERED: METOCLOPRAMIDE HCL INJ 5 MG/ML 2 ML VIAL IV PRN (09:50)
[2019-11-12] MEDS ORDERED: HYDROmorphone INJ 0.5 MG/0.5 ML SYR IV PRN (09:50)
[2019-11-12] MEDS ORDERED: ALBUTEROL HFA 8 GM INHALER INH PRN (09:50)
[2019-11-12] MEDS ORDERED: bisacodyL 10 MG SUPP PR PRN (09:50)
--- NOTE | 2019-11-12 09:54 | Anesthesiology Progress Note ---
Date of Service November 12, 2019 Anesthesia Post Procedure Vital Signs Vital Signs: Temp Pulse Pulse Pulse Resp BP BP 11/12/19 09:40 36.6 C 73 15 106/63 11/12/19 09:30 36.3 C L 68 24 109/56 L 11/12/19 09:20 70 20 114/56 L 11/12/19 09:10 68 20 115/55 L 11/12/19 09:00 71 14 121/57 L 11/12/19 08:50 36.1 C L 65 15 142/67 H 11/12/19 06:11 69 18 124/79 11/12/19 05:49 37 C 89 20 143/73 H Pulse Ox 11/12/19 09:40 94 11/12/19 09:30 93 11/12/19 09:20 89 L 11/12/19 09:10 98 11/12/19 09:00 98 11/12/19 08:50 97 11/12/19 06:11 98 11/12/19 05:49 97 Pain Intensity Left Shoulder: Pain Intensity: 6 Transfer of Care Handoff Completed per policy Notes Mental Status: alert / awake / arousable Patient Amnestic to Procedure: Yes Nausea / Vomiting: adequately controlled Pain: adequately controlled Airway Patency, RR, SpO2: stable & adequate BP & HR: stable & adequate Hydration State: stable & adequate Anesthetic Complications: no major complications apparent
[2019-11-12] MEDS ORDERED: PHARMACY GLYCEMIC MGMT CONSULT PRN (10:05)
[2019-11-12] MEDS ORDERED: GLUCOSE 40% GEL 15 GM TUBE PO PRN (10:15)
[2019-11-12] MEDS ORDERED: GLUCOSE 10 TABS/TUBE PO PRN (10:15)
[2019-11-12] MEDS ORDERED: GLUCAGON FOR INJ 1 MG VIAL SQ PRN (10:15)
[2019-11-12] MEDS ORDERED: CARBOHYDRATES FOR HYPOGLYCEMIA PO PRN (10:15)
[2019-11-12] MEDS ORDERED: NovoLIN-N (NPH) PER UNIT CHARGE SQ ONE (10:15)
[2019-11-12] MEDS ORDERED: DEXTROSE 50% 50 ML SYRINGE IV PRN (10:15)
--- NOTE | 2019-11-12 10:27 | Pharmacy Report ---
Pharmacy Glycemic Short Note 2 - Date of Service November 12, 2019 - Glycemic Short BSG Results (Last 24 hours): 11/12/19 11/12/19 11/12/19 05:23 07:22 08:53 POC Glucose 78 75 173 H OUTPATIENT ANTIDIABETIC REGIMEN: * 70/30 16 units BIDM, metformin 1000 mg BIDM * A1c 5.8% ASSESSMENT: * Ms. Mendoza seems to have excellent control outpatient with an A1c 5.8% (as long as not experiencing hypoglycemic events) * BSGs 75-173 preop, AM dose of 70/30 held if preparation for surgery. Will give NPH with late breakfast or lunch * Carb ratio started between weight based stress of 1 and 2, no steroids documented PLAN FOR INPATIENT GLYCEMIC CONTROL: * Hold outpatient oral diabetes medications * Basal insulin * NPH 10 units with late breakfast/lunch * Bolus insulin * NovoLog per scale ACHS or Q6hrs while NPO * Goal Range: Low 110 mg/dL - High 140 mg/dL * Correction Factor: 25 mg/dL/unit * Nutritional / Prandial insulin per carb ratio of 1 unit per 10 grams CHO consumed PLAN FOR DISCHARGE: * A1c 5.8% within goal range, continue current outpatient regimen as long as not experiencing frequent hypoglycemic events.
[2019-11-12] MEDS: LEVOTHYROXINE SODIUM 75 MCG TABLET PO SCH (10:53)
[2019-11-12] MEDS: AMLODIPINE BESYLATE 5 MG TAB PO SCH (10:53)
[2019-11-12] MEDS: DOCUSATE SODIUM 100 MG CAP PO SCH ×2 (10:55→21:15)
[2019-11-12] MEDS: LOSARTAN POTASSIUM 50 MG TAB PO SCH (10:55)
[2019-11-12] MEDS: MULTIVITAMIN TAB PO SCH (10:56)
[2019-11-12] MEDS: FUROSEMIDE 40 MG TAB PO SCH (10:56)
[2019-11-12] MEDS: INSULIN ASPART 100 UNITS/ML 3 ML PEN SC SCH ×4 (12:28→21:02)
[2019-11-12] MEDS: ACETAMINOPHEN 500 MG TAB PO SCH ×2 (13:48→21:13)
[2019-11-12] MEDS: OXYCODONE HCL IR 5 MG TAB (IMMEDIATE RELEASE) PO PRN ×2 (13:48→21:12)
[2019-11-12] MEDS: SODIUM CHLORIDE 0.9% 1000ML 1,000 ML IV SCH ×2 (13:48→21:15)
[2019-11-12] MEDS: CEFAZOLIN 2000MG 2,000 MG/15 ML SYR IV SCH ×2 (13:49→21:15)
[2019-11-12] MEDS ORDERED: ATORVASTATIN 40 MG TAB PO SCH (21:00)
[2019-11-12] MEDS ORDERED: SENNA 8.6 MG TAB PO SCH (21:00)
[2019-11-12] MEDS ORDERED: ASPIRIN 81 MG ECTAB PO SCH (21:00)
[2019-11-12] MEDS ORDERED: AMITRIPTYLINE HCL 25 MG TAB PO SCH (21:00)
[2019-11-13] MEDS: OXYCODONE HCL IR 5 MG TAB (IMMEDIATE RELEASE) PO PRN ×2 (03:03→10:04)
[2019-11-13] MEDS: ACETAMINOPHEN 500 MG TAB PO SCH (05:34)
[2019-11-13] MEDS: LEVOTHYROXINE SODIUM 75 MCG TABLET PO SCH (05:34)
[2019-11-13 05:59] LABS: Basophils # (auto) 0.01 K/uL (0-0.2); Basophils % (auto) 0.2 %; Eosinophils # (auto) 0.11 K/uL (0-0.5); Eosinophils % (auto) 1.9 %; Hematocrit (blood only) 33.3 % (37-47); Hemoglobin 10.7 g/dL (12.0-16.0); Immature Granulocytes # (auto) 0.01 K/uL (0.00-0.02); Immature Granulocytes % (auto) 0.2 %; Lymphocytes # (auto) 1.55 K/uL (1.2-3.4); Lymphocytes % (auto) 26.5 %; Mean Corpuscular Hemoglobin 29.3 pg (25-34); Mean Corpuscular Hgb Conc 32.1 g/dL (32-36); Mean Corpuscular Volume 91.2 fL (80-100); Mean Platelet Volume 10.7 fL (7.4-10.4); Monocytes # (auto) 0.45 K/uL (0.11-0.59); Monocytes % (auto) 7.7 %; Neutrophils # (auto) 3.71 K/uL (1.4-6.5); Neutrophils % (auto) 63.5 %; Platelet Count 149 K/uL (130-400); RDW Coefficient of Variation 13.3 % (11.5-14.5); RDW Standard Deviation 44.3 fL (36.4-46.3); Red Blood Count 3.65 M/uL (4.2-5.4); White Blood Count 5.84 K/uL (4.8-10.8)
[2019-11-13 06:33] LABS: BUN Creatinine Ratio 18.7 (10-20); Creatinine Clr Calc Pharmacy 58.8 ml/min; Est GFR (African American) 67.9; Est GFR (Non-African American) 58.6; Potassium 3.5 mmol/L (3.5-5.1)
--- NOTE | 2019-11-13 07:09 | Orthopedic Progress Note ---
Date of Service November 13, 2019 Assessment & Plan (1) Status post reverse arthroplasty of left shoulder: Overall she is doing very well. She is having a little bit of pain in the shoulder but is not too bad. She will be seen by physical therapy this morning for ambulation and range of motion exercises. She will be discharged home later this morning. She will follow-up with orthopedics in 2 weeks. Present on Admission?: Yes Admission and Anticipated Discharge Date Admission Date: November 12, 2019 Aaron Shoemaker was seen and examined at bedside this morning. Overall she is doing fairly well. She is not having too much pain in the left shoulder. She was able to get some sleep last night. She has no complaints. Physical Exam Musculoskeletal: On physical examination of the left shoulder, the dressing has a little bit of bloody drainage but it is not leaking. She is wearing her sling as instructed. The radial, median, and ulnar nerves are checked and intact at the wrist. Results & Data ([facility]) Vital Signs (Past 12 Hours) Vital Signs Temp Pulse Resp BP Pulse Ox 11/13/19 03:37 37.0 C 73 14 92/55 L 92 11/12/19 23:52 37.4 C 79 14 98/61 L 92 11/12/19 20:06 36.8 C 82 18 106/68 92 Laboratory Results H & H 10/14/19 11/13/19 Range/Units 11:19 05:38 Hgb 12.7 10.7 L (12.0-16.0) g/dL Hct 38.1 33.3 L (37-47) % Coagulation 10/14/19 Range/Units 11:19 INR 1.0 (0.9-1.1) Diagnostic Findings Postoperative x-rays of the left shoulder show the prosthesis to be in anatomic alignment without any evidence of fracture, dislocation, or loosening. PG Care Time/CCT Total # of Minutes Spent Total Time Spent with Patient: Total time spent is greater than 50% in coordination of care (as documented) at patient's floor/unit and/or counseling patient: Coding Level of Care Code None Diagnoses Status post reverse arthroplasty of left shoulder Z96.612
--- NOTE | 2019-11-13 07:10 | Discharge Summary ---
Date of Service November 13, 2019 Admission HPI Per Admitting Provider Sahara is a pleasant 68-year-old female who is been dealing with a several month history of severe left shoulder pain and paralysis. She simply reached over in bed to pet her cat when she began having the shoulder pain. It is quite severe. She is unable to forward elevate her shoulder. I sent her for an MRI which showed a massive retracted rotator cuff tear with severe atrophy of the muscle bellies. After failing conservative treatment, she has elected to proceed with a reverse left shoulder arthroplasty. Principal Diagnosis Left reverse shoulder replacement Discharge Data Allergies Allergy/AdvReac Type Severity Reaction Status Date / Time Penicillins Allergy Severe throat Verified 11/12/19 05:31 swelled hydrochlorothiazide Allergy Intermediate ELEVATED Verified 11/12/19 05:31 RENIN LEVELS Influenza Virus Vaccines Allergy Intermediate ARMS Verified 11/12/19 05:31 SWELLING/LYMPH NODES SWELLING naproxen Allergy Intermediate elevated Verified 11/12/19 05:31 renin levels sumatriptan Allergy Intermediate bp Verified 11/12/19 05:31 elevated, tachycardia dexamethasone AdvReac Severe SEIZURES Verified 11/12/19 05:31 Consultations 11/12/19 09:50 Consult Case Management - Discharge Planning Routine Procedures Performed Operation Date: 11/12/19 07:00 Actual Procedures p Left Reverse Total Shoulder Arthroplasty(Left) - Leonard Alvarado DO Ordered Studies 11/12/19 05:00 US - OR guided needle placemen Routine Hospital Course (1) Status post reverse arthroplasty of left shoulder: On November 12, 2019 Sahara arrived at [facility] and underwent a left reverse shoulder arthroplasty without complication. She had a general anesthetic and a left interscalene nerve block. Postoperatively she was placed in a sling and transferred to the general orthopedic floors. Her hospital course was uneventful. On postop day #1 her H&H was stable and her pain was well controlled. She was able to participate well with physical therapy doing ambulation and range of motion exercises. She was then discharged home. She will follow-up with orthopedics in 2 weeks. Total Time Total Time Spent Total Time Spent (In Minutes): 20 Discharge Plan Discharge Items Patient Disposition: Home - Home Health Services Reason For Visit: Left Shoulder Degenerative Joint Disease Discharge Diagnosis: Left reverse shoulder replacement Activity: As commented below Non-emergency contact: Surgeon Call non-emergency contact if: your wound has increased redness and your wound has increased drainage Follow-up/Referrals: Tre Dean, DO [Primary Care Provider] - Diet: Carb Consistent or DM2 Addtl Attending Provider Instructions: Activity and Therapy Recommendations: * If you are using [facility] then therapy will be provided at your home until they feel you have accomplished all of your goals. * If you are using [facility] then Physical Therapy will be provided until they feel you are ready to start Outpatient Physical Therapy. * If you are not using home therapy then Outpatient Physical Therapy should start about 3-5 days from your day of surgery. Therapy will last about 8-12 weeks * Wear your sling for 3 weeks, unless otherwise instructed. You may remove your sling to shower and to dress, but otherwise, you should be in your sling at all times, including while sleeping * The shoulder replacement is very stable and you can use your hand while in the sling * You were shown a series of exercises in the hospital. Do these exercises daily including the exercises you were shown in physical therapy. Medications: * Narcotic You will likely be sent home from the hospital with a prescription for the narcotic pain medication that worked best throughout your stay. * Other medications may be prescribed for specific circumstances. If you have any questions, please call the office at . * Resume previous home medications unless otherwise instructed Dressing Care: Leave the Silverlon dressing in place for 7 days. After 7 days you may remove the dressing. If the incision is not draining then you may leave the kerri open to air. If there is a little bit of drainage or if the kerri are getting stuck on your clothing then cover the incision with a dry dressing. The kerri will be removed at your 2 week follow-up appointment. Showering: You may shower with the Silverlon dressing in place. Do not let the shower spray hit the dressing directly. Pat the Silverlon dressing dry. If the dressing becomes wet underneath, then simply remove the dressing. Keep the incision dry until you are 7 days out from the day of surgery. After 7 days you may remove the Silverlon dressing and shower with the kerri exposed. Let soapy water run over the kerri and pat them dry. Do not scrub or soak the incision. Things To Watch For: * Drainage from the incision site that occurs more than one week after your surgery. * Increased redness at the incision site. * Fever above 102 degrees Fahrenheit. * Unusual chest pain or shortness of breath. * Call [facility] at with any of the above problems Follow-Up Visit: Follow-up with Dr. Alvarado's PA (Leonard Willoughby) 2-3 weeks after your day of s urgery. He will remove your kerri and answer any questions. If you have any additional questions or concerns, Dr Alvarado is usually in the office at the same time and will be available An appointment was probably scheduled when you signed-up for surgery in the office. If you have any questions call More detailed instructions as well as Frequently Asked Questions were provided in a folder by our office when you signed-up for surgery. Please review these instructions when you get home. If you have any further questions or concerns, please feel free to call the office at [phone] Pending Studies at Discharge: No Stand-Alone Forms: [facility], Smoking Cessation Medications and DC Order Prescriptions: New oxycodone 5 mg Tablet 5 mg PO Q4H PRN (Reason: pain) Qty: 30 RF: 0 Continued amlodipine 10 mg tablet 10 mg PO DAILY Qty: 90 RF: 3 atorvastatin 80 mg tablet 80 mg PO HS Qty: 90 RF: 3 furosemide 40 mg tablet 40 mg PO DAILY Qty: 90 RF: 3 levothyroxine 75 mcg tablet 75 mcg PO DAILY Qty: 90 RF: 3 losartan 100 mg tablet 100 mg PO DAILY Qty: 90 RF: 1 metformin 1,000 mg tablet 1,000 mg PO BID Qty: 180 RF: 3 amitriptyline 75 mg tablet 75 mg PO HS Qty: 90 RF: 1 (DME) Accu-Chek Kirsten Plus test strp Strip See Dose Instructions .ROUTE .MEDSUPPLY Qty: 100 RF: 3 Novolin 70/30 U-100 Insulin 100 unit/mL (70-30) suspension 16 units subcut BIDM Qty: 20 RF: 5 albuterol sulfate 90 mcg/actuation HFA aerosol inhaler 2 puff inhalation QID PRN (Reason: Asthma) Qty: 18 RF: 5 (DME) insulin syringe-needle U-100 [BD Insulin Syringe] 1 mL 29 gauge x 1/2" syringe See Dose Instructions .ROUTE .MEDSUPPLY Qty: 1 RF: 0 aspirin 81 mg tablet,delayed release (DR/EC) 81 mg PO HS RF: 0 calcium 600 mg Capsule 600 mg PO BID RF: 0 ascorbic acid (vitamin C) [Vitamin C] 500 mg Tablet 500 mg PO QAM RF: 0 zinc 50 mg Tablet 25 mg PO HS RF: 0 multivitamin-iron (hematinic) Tablet 1 tab PO HS RF: 0 cholecalciferol (vitamin D3) [Vitamin D3] 25 mcg (1,000 unit) Tablet 25 mcg PO QAM RF: 0 Discontinued hydrocodone-acetaminophen 5-325 mg tablet 1 tab PO TID PRN (Reason: pain) Qty: 90 RF: 0 Discharge Orders: Discharge Order (Routine); Ordered 11/13/19 Ordered By: Leonard Alvarado Admission Data Admit Date/Time: 11/12/19 08:48 Attending Provider: Leonard Alvarado Admit Provider: Leonard Alvarado Primary Care Provider: Tre Dean Coding Level of Care Code D/C Day Management <30 mins Diagnoses Status post reverse arthroplasty of left shoulder Z96.612
[2019-11-13] MEDS: FUROSEMIDE 40 MG TAB PO SCH (08:49)
[2019-11-13] MEDS: DOCUSATE SODIUM 100 MG CAP PO SCH (08:49)
[2019-11-13] MEDS: MULTIVITAMIN TAB PO SCH (08:49)
[2019-11-13] MEDS: AMLODIPINE BESYLATE 5 MG TAB PO SCH (08:49)
[2019-11-13] MEDS: LOSARTAN POTASSIUM 50 MG TAB PO SCH (08:50)
[2019-11-13] MEDS: INSULIN ASPART 100 UNITS/ML 3 ML PEN SC SCH (08:51)
[2019-11-13] MEDS ORDERED: NovoLIN-N (NPH) PER UNIT CHARGE SQ ONE (09:00)
== END 2019-11-13 11:29 | disposition home or self-care (01) | DRG 483 ==
LOC: ASU 04:55 → 3E 08:48

== ENCOUNTER 2022-02-21 08:43 | Observation (INO) ==
--- NOTE | 2022-01-16 15:38 | PAT Medication Instructions ---
Medication Instructions Date of Service January 16, 2022 Home Medications Medication Instructions Recorded albuterol sulfate 90 mcg/actuation 2 puff inhalation QID PRN Asthma 10/20/19 aerosol inhaler #18 grams blood sugar diagnostic (Accu-Chek #100 ea 03/08/21 Kirsten Plus test strips) insulin aspar prot-insulin aspart 16 unit (0.16 mL) subcut BID #15 mL 04/12/21 100 unit/mL (70-30) subcutaneous pen (Novolog Mix 70-30FlexPen U-100) atorvastatin 80 mg tablet 80 mg PO HS #90 tabs 10/23/21 metformin 1,000 mg tablet 1,000 mg PO BID #180 tabs 10/23/21 amitriptyline 75 mg tablet 75 mg PO HS #90 tabs 10/31/21 hydrocodone 5 mg-acetaminophen 325 1 tab PO TID PRN pain #90 tabs 01/08/22 mg tablet insulin syringe-needle U-100 1 mL 29 gauge x 1/2" (BD Insulin Syringe) aspirin 81 mg tablet,delayed release 81 mg PO HS ascorbic acid (vitamin C) 500 mg tablet (Vitamin C) 500 mg PO QAM calcium 600 mg capsule 600 mg PO BID cholecalciferol (vitamin D3) 25 mcg (1,000 unit) tablet (Vitamin D3) 25 mcg PO QAM multivitamin-iron (hematinic) 1 tab PO HS zinc 50 mg tablet 25 mg PO HS albuterol sulfate 90 mcg/actuation aerosol inhaler 2 puff inhalation QID PRN blood sugar diagnostic (Accu-Chek Kirsten Plus test strips) insulin aspar prot-insulin aspart 100 unit/mL (70-30) subcutaneous pen (Novolog Mix 70-30FlexPen U-100) 16 unit (0.16 mL) subcut BID atorvastatin 80 mg tablet 80 mg PO HS metformin 1,000 mg tablet 1,000 mg PO BID amitriptyline 75 mg tablet 75 mg PO HS hydrocodone 5 mg-acetaminophen 325 mg tablet 1 tab PO TID PRN amlodipine 10 mg tablet 10 mg PO QAM furosemide 40 mg tablet 40 mg PO QAM levothyroxine 75 mcg tablet 75 mcg PO QAM losartan 100 mg tablet 100 mg PO QAM ASK your prescriber and surgeon amitriptyline 75 mg tablet 75 mg PO HS DO NOT take the morning of surgery ascorbic acid (vitamin C) 500 mg tablet (Vitamin C) 500 mg PO QAM calcium 600 mg capsule 600 mg PO BID cholecalciferol (vitamin D3) 25 mcg (1,000 unit) tablet (Vitamin D3) 25 mcg PO QAM metformin 1,000 mg tablet 1,000 mg PO BID furosemide 40 mg tablet 40 mg PO QAM losartan 100 mg tablet 100 mg PO QAM Take morning of surgery With a small sip of water, OTHERWISE NOTHING TO EAT OR DRINK AFTER MIDNIGHT: albuterol sulfate 90 mcg/actuation aerosol inhaler 2 puff inhalation QID PRN(use if needed; please bring with you to hospital day of surgery if possible) hydrocodone 5 mg-acetaminophen 325 mg tablet 1 tab PO TID PRN(if needed) amlodipine 10 mg tablet 10 mg PO QAM levothyroxine 75 mcg tablet 75 mcg PO QAM Take evening before surgery aspirin 81 mg tablet,delayed release 81 mg PO HS (unless directed otherwise by surgeon) calcium 600 mg capsule 600 mg PO BID multivitamin-iron (hematinic) 1 tab PO HS zinc 50 mg tablet 25 mg PO HS albuterol sulfate 90 mcg/actuation aerosol inhaler 2 puff inhalation QID PRN(if needed) atorvastatin 80 mg tablet 80 mg PO HS metformin 1,000 mg tablet 1,000 mg PO BID hydrocodone 5 mg-acetaminophen 325 mg tablet 1 tab PO TID PRN(if needed) Insulin Dependent Diabetic Patients * Test your blood sugar the morning of surgery * If Blood Sugar is GREATER THAN 150, take HALF of your regular dose of: insulin aspar prot-insulin aspart 100 unit/mL (70-30) subcutaneous pen (Novolog Mix 70-30FlexPen U-100)-8 units (0.16 mL) subcut BID. * If Blood Sugar is LESS THAN 150, DO NOT TAKE ANY: insulin aspar prot-insulin aspart 100 unit/mL (70-30) subcutaneous pen (Novolog Mix 70-30FlexPen U-100). Other Notes If you have any questions please call us at [phone] or [phone] or [phone] or [phone]
--- NOTE | 2022-01-23 11:40 | Anesthesiology Consultation ---
Date of Service January 23, 2022 Assessment & Plan (1) Encounter for pre-operative examination: Plan - awaiting updated echocardiogram and PCP pre-op evaluation. Pt aware, denied questions or concerns. Oksana with surgeon's office made aware. - Case discussed with Dr. Mckinney who advised pt is not recommended outpatient joint candidate and will need updated echocardiogram prior to surgery, does not need cardiology clearance from his standpoint. Message sent to [place] PCP. - check BSG am DOS. - pt expressed feeling blood glucose was low as felt "shaky" with slight headache, drank orange juice box she carries with her for such situations. Blood glucose checked before pt left clinic and was 74. She states "shakiness" and headache have fully resolved, she feels fully back to baseline at this time. - [place] PCP Pre-op evaluation 01/24/22. - difficult intubation: h/o glidescope intubation: L reverse TSA 11/12/1920 Grade 2 view, MAC 3 noted lip lac with intact dentition-utilized glidescope 4, ETT 7.5 + PNB. Outpatient joint assessment: Patient is currently scheduled for inpatient pathway. If re-evaluated pending system levels during current pandemic/surgeon requests outpatient pathway, patient is not acceptable candidate for outpatient joint program from anesthesia standpoint. Chart Review Chart Review: Pending: Refer to Additional Notes / Consult section and Patient seen in Pre Admission Testing Teaching & Discussion Pre-Anesthesia Teaching/Discussion Notes: Instructed NPO after midnight before surgery, except medications with 15 cc of water. Medication instructions provided according to the PAT guidelines. History Surgery Operation Date: 02/19/22 10:45 Proposed Procedures p Right Total Knee Arthroplasty - Leonard Alvarado, Height/Weight Height: 5 ft 2 in Weight: 83.915 kg Allergies Allergy/AdvReac Type Severity Reaction Status Date / Time Penicillins Allergy Severe throat Verified 01/16/22 12:46 swelled hydrochlorothiazide Allergy Intermediate ELEVATED Verified 01/16/22 12:46 RENIN LEVELS naproxen Allergy Intermediate elevated Verified 01/16/22 12:46 renin levels sumatriptan Allergy Intermediate bp Verified 01/16/22 12:46 elevated, tachycardia dexamethasone AdvReac Severe SEIZURES Verified 01/16/22 12:46 bee venom protein (honey bee) AdvReac Unknown Redness of Verified 01/16/22 12:46 Skin Medications Home Medications Medication Instructions Recorded Confirmed Last Taken insulin syringe-needle U-100 1 mL #1 ea 08/24/18 10/23/21 Unknown 29 gauge x 1/2" (BD Insulin Syringe) aspirin 81 mg tablet,delayed 81 mg PO HS 11/17/18 01/16/22 11/11/19 21:30 release ascorbic acid (vitamin C) 500 mg 500 mg PO QAM 10/07/19 01/16/22 11/11/19 08:30 tablet (Vitamin C) calcium 600 mg capsule 600 mg PO BID 10/07/19 01/16/22 11/11/19 21:30 cholecalciferol (vitamin D3) 25 25 mcg PO QAM 10/07/19 01/16/22 11/11/19 21:30 mcg (1,000 unit) tablet (Vitamin D3) multivitamin-iron (hematinic) 1 tab PO HS 10/07/19 01/16/22 11/12/19 04:00 zinc 50 mg tablet 25 mg PO HS 10/07/19 01/16/22 11/11/19 21:30 albuterol sulfate 90 mcg/actuation 2 puff inhalation QID PRN Asthma 10/20/19 01/16/22 11/12/19 04:00 aerosol inhaler #18 grams blood sugar diagnostic (Accu-Chek #100 ea 03/08/21 10/23/21 Unknown Kirsten Plus test strips) insulin aspar prot-insulin aspart 16 unit (0.16 mL) subcut BID #15 mL 04/12/21 01/16/22 Unknown 100 unit/mL (70-30) subcutaneous pen (Novolog Mix 70-30FlexPen U-100) atorvastatin 80 mg tablet 80 mg PO HS #90 tabs 10/23/21 01/16/22 Unknown metformin 1,000 mg tablet 1,000 mg PO BID #180 tabs 10/23/21 01/16/22 Unknown amitriptyline 75 mg tablet 75 mg PO HS #90 tabs 10/31/21 01/16/22 Unknown hydrocodone 5 mg-acetaminophen 325 1 tab PO TID PRN pain #90 tabs 01/08/22 01/16/22 Unknown mg tablet amlodipine 10 mg tablet 10 mg PO QAM 01/16/22 01/16/22 Unknown furosemide 40 mg tablet 40 mg PO QAM 01/16/22 01/16/22 Unknown levothyroxine 75 mcg tablet 75 mcg PO QAM 01/16/22 01/16/22 Unknown losartan 100 mg tablet 100 mg PO QAM 01/16/22 01/16/22 Unknown Past Medical History Medical History (Updated 01/23/22 @ 11:47 by Fiordaliza Maravilla PA-C) Bicuspid aortic valve Suspected biscuspid AV per 2014 ECHO- no significant stenosis noted Cardiac murmur DOES NOT FOLLOW WITH CARDIO- PRESENT >10 YEARS - ECHO done in 2014 showed no significant issues with exception to suspected bicuspid AV without noted stenosis Degenerative disc disease Diabetes mellitus, type 2 IDDM Difficult intubation h/o glidescope intubation: L reverse TSA 11/12/1920 Grade 2 view, MAC 3 noted lip lac with intact dentition-utilized glidescope 4, ETT 7.5 + PNB. Fibromyalgia NO RECENT FLARES- STABLE PAIN H/O cataract History of anxiety History of brain tumor S/P REMOVAL - BENIGN Hyperlipidemia Hypertension controlled, stable per pt Hypothyroidism Migraine Peripheral neuropathy BILATERAL FEET - SENSITIVE TO THE TOUCH Seizure LAST EVENT 1972 (HX BRAIN TUMOR)- NO ISSUES SINCE THAT TIME Stage 3 chronic kidney disease Temporomandibular joint disorder NO LOCKING- OCC CLICKING Patient denies h/o stroke, heart attack, heart failure, blood clots or blood transfusions. Exercise / Class Metabolic Activity III < 4 Walking/Shop/Light housework (denies CP or SOB with usual activities, ambulates with cane) Past Family History Family History Grandfather Colorectal cancer Mother Family history of diabetes mellitus Myocardial infarction Unknown Ovarian cancer Sister Congestive heart failure Cataract Father Esophageal cancer Other No family history of adverse response to anesthesia Denies family history of Prostate cancer Breast cancer Past Surgical History Surgical History (Updated 01/23/22 @ 11:46 by Fiordaliza Maravilla PA-C) H/O colonoscopy 01/23/15 H/O craniotomy 1969 BRAIN TUMOR REMOVED H/O knee surgery LEFT X 2 History of appendectomy History of back surgery (~2012) x 2, L3-L4 lumbar decompression and fusion History of carpal tunnel surgery RT/LEFT History of repair of rotator cuff RT History of tonsillectomy and adenoidectomy History of tooth extraction Status post reverse arthroplasty of left shoulder (~10/2019) Grade 2 view, MAC 3 noted lip lac with intact dentition-utilized glidescope 4, ETT 7.5 + PNB. Past Anesthesia History No Hx of Anesthesia Complications and No Family Hx of Anesthesia Complications History of PONV No Hx of PONV and No Hx of Motion Sickness Social History Smoking Status: Former smoker tobacco type: cigarettes Do You Dip or Chew Tobacco: No Smoking End Date: 1978 Hx Alcohol Use: No Hx Substance Use: No substance use type: does not use Review of Systems Patient denies chest pain, shortness of breath, dyspnea on exertion, snoring, witnessed apneas, reflux, fever, chills, cough, wheezing, dizziness, lightheadedness, presyncope, or palpitations. Physical Exam Vital Signs Vitals BP 115/71 P 62 TEMP 98.7 SP02 97% on RA RESP 18 Physical Patient resting comfortably in chair in NAD throughout visit, non-diaphoretic Full cervical extension range of motion without pain TMD 3.5 finger breadths Mallampati Score 3 Dentition: intact, several chipped teeth; denies loose teeth, caps/crowns, implants or bridges Lungs: normal respiratory effort. Clear throughout to auscultation, no adventitious breath sounds Cardiac: regular rate and rhythm, 4/6 systolic murmur noted Carotid arteries: negative bruit bilat Lab Results Anesthesia Preop Results Results Anesthesia Widget: WBC 4.34 K/ul (4.8-10.8) L 01/23/22 Hgb 13.7 g/dl (12.0-16.0) 01/23/22 Hct 40.4 % (34.1-44.9) 01/23/22 Plt 174 K/uL (130-400) 01/23/22 Na 139 mmol/L (136-145) 01/23/22 K 4.1 mmol/L (3.5-5.1) 01/23/22 Cl 100 mmol/L (98-107) 01/23/22 CO2 29 mmol/L (21-32) 01/23/22 BUN 24 mg/dl (6-23) H 01/23/22 Creat 0.99 mg/dl (0.6-1.2) 01/23/22 Glucose Level 97 mg/dl (70-99(Fasting)) 01/23/22 POC Glucose 74 mg/dl (70-99) 01/23/22 PT 11.1 Seconds (9.0-12.0) 01/23/22 PTT 27.9 Seconds (21.0-31.0) 01/23/22 INR 1.0 (0.9-1.1) 01/23/22 HA1c 5.5 % (4.5-5.6) 01/23/22 Blood Type O Positive 01/23/22 Antibody Screen NEGATIVE 01/23/22 Testing Electrocardiogram Date: 01/23/22 NSR, rate 71 bpm Chest X-Ray Date: 01/23/22 Correlation is made with chest CT dated 03/01/2014. The heart is enlarged noting atherosclerotic calcification of the thoracic aorta. The pulmonary vasculature is noncongested. Chronic interstitial thickening similar to previous. The lungs and pleural spaces are clear. There is no pneumothorax. The skeletal structures are osteopenic. The bony thorax appears intact. A left shoulder arthroplasty is in place. Fusion hardware is seen in the lumbar spine. IMPRESSION: Cardiomegaly with no active disease in the chest. COVID-19 Risk Screen Screening Information COVID-19 Screen Date: 01/23/22 Exposure 21 Days Family/Household +COVID Last 21 Days: No Exposure 10 Days Any COVID Exposure Last 10 Days: No Symptoms Last 10 Days Experienced COVID Sx Last 10 Days: No + COVID 0-90 Days COVID + in Last 0-90 Days: No
--- NOTE | 2022-02-14 14:14 | History & Physical Report ---
Date of Service February 14, 2022 Assessment & Plan (1) Osteoarthritis of right knee: We will proceed with a right total knee arthroplasty. Postoperatively she will be started on aspirin for DVT prophylaxis and kept overnight in the hospital for postop medical management. She plans to use energy physical therapy upon discharge. History of Present Illness Chief Complaint: Osteoarthritis of the right knee. Primary Care Provider: Tre Dean DO Shoemaker is a pleasant 71-year-old female who has been dealing with chronicworsening right knee pain. X-rays and clinical examination have been diagnostic for advanced arthritis of the right knee. After failing years of conservative treatment, and including multiple injections, she has elected proceed with a right total knee arthroplasty. Allergies Allergy/AdvReac Type Severity Reaction Status Date / Time Penicillins Allergy Severe throat Verified 01/24/22 11:23 swelled hydrochlorothiazide Allergy Intermediate ELEVATED Verified 01/24/22 11:23 RENIN LEVELS naproxen Allergy Intermediate elevated Verified 01/24/22 11:23 renin levels sumatriptan Allergy Intermediate bp Verified 01/24/22 11:23 elevated, tachycardia dexamethasone AdvReac Severe SEIZURES Verified 01/24/22 11:23 bee venom protein (honey bee) AdvReac Unknown Redness of Verified 01/24/22 11:23 Skin Home Medications Medication Instructions Recorded Confirmed Type insulin syringe-needle U-100 1 mL #1 ea 08/24/18 01/24/22 History 29 gauge x 1/2" (BD Insulin Syringe) aspirin 81 mg tablet,delayed 81 mg PO HS 11/17/18 01/24/22 History release ascorbic acid (vitamin C) 500 mg 500 mg PO QAM 10/07/19 01/24/22 History tablet (Vitamin C) calcium 600 mg capsule 600 mg PO BID 10/07/19 01/24/22 History cholecalciferol (vitamin D3) 25 25 mcg PO QAM 10/07/19 01/24/22 History mcg (1,000 unit) tablet (Vitamin D3) multivitamin-iron (hematinic) 1 tab PO HS 10/07/19 01/24/22 History zinc 50 mg tablet 25 mg PO HS 10/07/19 01/24/22 History albuterol sulfate 90 mcg/actuation 2 puff inhalation QID PRN Asthma 10/20/19 01/24/22 Rx aerosol inhaler #18 grams insulin aspar prot-insulin aspart 16 unit (0.16 mL) subcut BID #15 mL 04/12/21 01/24/22 Rx 100 unit/mL (70-30) subcutaneous pen (Novolog Mix 70-30FlexPen U-100) atorvastatin 80 mg tablet 80 mg PO HS #90 tabs 10/23/21 01/24/22 Rx metformin 1,000 mg tablet 1,000 mg PO BID #180 tabs 10/23/21 01/24/22 Rx amitriptyline 75 mg tablet 75 mg PO HS #90 tabs 10/31/21 01/24/22 Rx amlodipine 10 mg tablet 10 mg PO QAM 01/16/22 01/24/22 History furosemide 40 mg tablet 40 mg PO QAM 01/16/22 01/24/22 History levothyroxine 75 mcg tablet 75 mcg PO QAM 01/16/22 01/24/22 History losartan 100 mg tablet 100 mg PO QAM 01/16/22 01/24/22 History blood sugar diagnostic (Accu-Chek #100 ea 01/24/22 01/24/22 Rx Kirsten Plus test strips) hydrocodone 5 mg-acetaminophen 325 1 tab PO TID PRN pain #90 tabs 02/05/22 Rx mg tablet Past Med/Surg History Medical History Aortic stenosis mild on 01/2022 echo Cardiac murmur DOES NOT FOLLOW WITH CARDIO- PRESENT >10 YEARS - ECHO done in 2014 showed no significant issues with exception to suspected bicuspid AV without noted stenosis Degenerative disc disease Diabetes mellitus, type 2 IDDM Difficult intubation h/o glidescope intubation: L reverse TSA 11/12/1920 Grade 2 view, MAC 3 noted lip lac with intact dentition-utilized glidescope 4, ETT 7.5 + PNB. Fibromyalgia NO RECENT FLARES- STABLE PAIN H/O cataract History of anxiety History of brain tumor S/P REMOVAL - BENIGN Hyperlipidemia Hypertension controlled, stable per pt Hypothyroidism Migraine Peripheral neuropathy BILATERAL FEET - SENSITIVE TO THE TOUCH Seizure LAST EVENT 1972 (HX BRAIN TUMOR)- NO ISSUES SINCE THAT TIME Stage 3 chronic kidney disease Temporomandibular joint disorder NO LOCKING- OCC CLICKING Surgical History H/O colonoscopy 01/23/15 H/O craniotomy 1969 BRAIN TUMOR REMOVED H/O knee surgery LEFT X 2 History of appendectomy History of back surgery (~2012) x 2, L3-L4 lumbar decompression and fusion History of carpal tunnel surgery RT/LEFT History of repair of rotator cuff RT History of tonsillectomy and adenoidectomy History of tooth extraction Status post reverse arthroplasty of left shoulder (~10/2019) Grade 2 view, MAC 3 noted lip lac with intact dentition-utilized glidescope 4, ETT 7.5 + PNB. 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 Physical Exam On physical examination the right knee, she has a slight varus deformity. She h as range of motion from 5 to 115 degrees. She has no instability. She has pain of the distal medial femoral condyle and over the medial joint line.. Constitutional WD/WN, vitals as above Eyes PERRL, conjunctivae normal, anicteric sclerae ENMT external ear and nose normal, oropharynx normal Neck trachea midline, no thyromegaly Respiratory normal respiratory effort, lungs clear to auscultation Cardiovascular RRR, no murmur, no edema Gastrointestinal (Abdomen) normal bowel sounds, soft, nontender, no hepatosplenomegaly Skin no rashes, warm and dry Psychiatric A+Ox3, euthymic affect Results & Data Results & Data Laboratory Results . Diagnostic Findings X-rays of the right knee show advanced osteoarthritis with joint space narrowing osteophyte formation and [id number] articulation.. PG Care Time/CCT Total # of Minutes Spent Total Time Spent with Patient: Total time spent is greater than 50% in coordination of care (as documented) at patient's floor/unit and/or counseling patient: Coding Level of Care Code None Diagnoses Osteoarthritis of right knee M17.11
[~2022-02-21 08:43] MED LIST changes: +ACETAMINOPHEN 500 MG TAB PO SCH; +ALLERGY Noted to ORDERED Medication SCH; +BUPIVACAINE 0.5 % 5 MG/1 ML PF 10ML VIAL ONE; +EPINEPHrine INJ 1 MG/ML AMP ONE; +FAMOTIDINE 20 MG TAB PO SCH; +GABAPENTIN 300 MG CAP PO SCH; +LR 500ML BOLUS, THEN 15ML/HR IV SCH; +LR 60ML/HR IV SCH; +ORTHO JOINT MIX INFIL SCH; +ROPIVACAINE 0.5% 5 MG/ML 30 ML VIAL ONE; +TRANEXAMIC ACID / 0.7% NACL 1,000 MG/100 ML BAG IV SCH; +TRANEXAMIC ACID 1,000 MG **IV Intra-op IV SCH; +TRANEXAMIC ACID 1,000 MG **IV Pre-op IV SCH; -[UNRECOGNIZED DRUG - REMARK] SCH; +ceFAZolin 2000MG 2,000 MG/15 ML SYR IV SCH
[2022-02-21] MEDS ORDERED: D5W AND NSS 1,000 ML IV SCH (10:15)
--- NOTE | 2022-02-21 11:40 | History & Physical Bridge Note ---
Date of Service February 21, 2022 History & Physical Bridge Note I have examined the patient, reviewed the History & Physical and in the interval since the performance of the History & Physical I have noted the following changes of clinical significance: no changes noted
[2022-02-21] MEDS ORDERED: MIDAZOLAM HCL 1 MG/ML 2ML VIAL ONE (12:02)
[2022-02-21] MEDS ORDERED: fentaNYL citrate 100 MCG/2 ML VIAL ONE (12:02)
[2022-02-21] MEDS ORDERED: ORTHO JOINT ANESTHETIC ONE (12:12)
[2022-02-21] MEDS ORDERED: ceFAZolin 2,000 MG/15 ML IV PUSH IV ONE (12:22)
[2022-02-21] MEDS ORDERED: Nursing to Pharmacy Communication SCH (12:30)
[2022-02-21] MEDS ORDERED: PHENYLEPHRINE 100MCG/ML 5ML SYR ONE ×2 (13:02→14:41)
[2022-02-21] MEDS ORDERED: PROPOFOL IV EMULSION 10 MG/ML 20 ML VIAL IV ONE ×2 (13:02→13:51)
[2022-02-21] MEDS ORDERED: ePHEDrine sulfate 50 MG/ML SYR ONE (13:02)
[2022-02-21] MEDS ORDERED: ONDANSETRON INJ 2 MG/ML 2 ML VIAL ONE (13:02)
[2022-02-21] MEDS ORDERED: PHENYLEPHRINE HCL 10 MG/ML VIAL ONE (13:18)
--- NOTE | 2022-02-21 13:50 | Operative Report ---
PG Post Operative Report Pre & Post Diagnosis Operation Date: 02/21/22 11:30 Pre-Op Diagnosis: DJD Right Knee Post-Op Diagnosis: DJD Right Knee I identified the patient and participated in the time-out.: Yes Procedure Operation Date: 02/21/22 11:30 Actual Procedures p Right Total Knee Arthroplasty(Right) - Leonard Alvarado DO Surgeon Leonard Alvarado DO Ceiling Cleaner Leonard Willoughby PA-C Estimated Blood Loss 20 Findings Consistent with Post-Op Diagnosis Specimens Right femoral and tibial bone Description of Procedure Implants used: I used a Jacky Persona total knee arthroplasty system with a size 7 standard femur, E tibia, 31 oval patella, and a size 13 medial congruent polyethylene bearing. All components were cemented in place with Biomet cement. Sahara arrived [facility] for the above procedure. She was seen in the preoperative holding area and the operative extremity was identified and signed. She was given a preoperative antibiotic, TXA, a spinal anesthetic and an adductor nerve block. She was taken back to the operating room and laid on the table in supine position. She was given basic sedation. The operative knee was then prepped and draped in sterile fashion. A timeout was done, and the patient and the operative extremity was properly identified. A midline incision was made directly over the patella. Dissection was taken down to the extensor mechanism. A subvastus arthrotomy was used. The medial retinaculum was released and the fat pad was mostly excised. The knee was flexed and the ACL, PCL, and meniscus were removed. A drill was sent down the center of the femoral canal followed by an intramedullary colt. Off that colt a distal femoral cutting block was placed. 9 mm was resected off the distal femur at 5 of valgus. A posterior referencing AP sizing guide was then placed on the distal femur. The femur measured to be a size 7. 2 drill holes were placed in 3 of external rotation. A 4-in-1 cutting block was then impacted into place. Anterior, posterior, and chamfer cuts were then made. The proximal tibia was then exposed. An external tibial alignment guide was placed. A tibial cut guide was then anchored in place and the proximal tibia was then resected. The posterior aspect of the knee was then opened up and any additional meniscus fragments and osteophytes were removed. The tibia measured to be a size E. The tibial plate was then placed in the appropriate rotation and the tibia was drilled and punched. Trial components were then placed. I used a size 13 medial congruent polyethylene insert. The knee was brought through a full range of motion and felt to be stable. The peg holes for the femoral component were then drilled. The patella was then everted and 9 mm was resected off the posterior aspect of the patella. The patella measured to be a size 31 oval. 3 peg holes were then drilled. A trial patella was placed. The knee was once again brought through a full range of motion and felt to be stable. Trial components were then removed. The surrounding soft tissues were injected with 100 cc of an orthopedic pain control cocktail. All components were then cemented into place with Biomet cement. The final polyethylene insert was then snapped into place. Once cement was dry the tourniquet was deflated. Hemostasis was obtained. A dilute betadyne lavage was then done for 3 minutes. The joint was then irrigated with normal saline solution. The subvastus arthrotomy was then closed with #1 Vicryl suture. The skin was closed with 2-0 Vicryl, 3-0V lock suture, and kerri. A soft compressive dressing was placed. She was then transferred to a hospital bed and taken to the postanesthesia care unit in stable condition. She tolerated the procedure well. Leonard Willoughby PA-C, was present for the entire procedure. He was critical for patient positioning, prepping, draping, retraction exposure, wound closure and application of sterile dressing. I attest to the content of the Intraoperative Record and any orders documented therein. Any exceptions are noted below.
[2022-02-21] MEDS ORDERED: ePHEDrine sulfate 50 MG/ML AMP IV PRN (14:26)
[2022-02-21] MEDS ORDERED: LABETALOL HCL IV 5 MG/ML 20ML IV PRN (14:26)
[2022-02-21] MEDS ORDERED: PHENYLEPHRINE HCL 20 MG in DEXTROSE 5% 500 ML IV PRN (14:26)
[2022-02-21] MEDS ORDERED: fentaNYL citrate 100 MCG/2 ML VIAL IV PRN (14:26)
[2022-02-21] MEDS ORDERED: ONDANSETRON INJ 2 MG/ML 2 ML VIAL IV PRN ×2 (14:26→16:11)
[2022-02-21] MEDS ORDERED: FLUMAZENIL 0.1 MG/1 ML 10 ML VIAL IV PRN (14:26)
[2022-02-21] MEDS ORDERED: PROMETHAZINE HCL 12.5 MG in SODIUM CHLORIDE 0.9% 50 ML IV PRN (14:26)
[2022-02-21] MEDS ORDERED: PHENYLEPHRINE 100MCG/ML 5ML SYR IV PRN (14:26)
[2022-02-21] MEDS ORDERED: ATROPINE SULFATE 0.1 MG/ML 10ML SYR IV PRN (14:26)
[2022-02-21] MEDS ORDERED: NALOXONE HCL 0.4 MG/1 ML VIAL/CARP IV PRN ×2 (14:26→16:11)
--- NOTE | 2022-02-21 14:58 | XRay Report ---
TWO VIEWS RIGHT KNEE CLINICAL HISTORY: Postoperative examination. FINDINGS: AP and crosstable lateral portable views of the right knee are obtained. A right knee arthr oplasty is in near anatomic alignment. There has been undersurface remodeling of the patella. No acut e fracture is seen. There are expected postoperative changes around the knee including skin clips, so ft tissue edema, and subcutaneous gas. IMPRESSION: Expected postoperative changes status post right knee arthroplasty. No acute fracture is seen. ACT 112: Negative or not required by law. Electronically signed by: Agustin Del Rosario M.D. 02/21/2022 2:56 PM
--- NOTE | 2022-02-21 15:33 | Anesthesiology Progress Note ---
Date of Service February 21, 2022 Anesthesia Post Procedure Vital Signs Vital Signs: Temp Pulse Pulse Resp BP Pulse Ox O2 Del Method 02/21/22 15:25 76 21 94/55 L 95 Room Air 02/21/22 15:15 74 16 90/52 L 95 Room Air 02/21/22 15:05 75 14 95/34 L 96 Room Air 02/21/22 14:55 77 16 94/47 L 95 Room Air 02/21/22 14:45 70 12 88/49 L 95 Room Air 02/21/22 14:35 72 12 92/51 L 98 Room Air 02/21/22 14:25 69 15 91/50 L 98 Oxymask 02/21/22 14:15 71 12 103/49 L 99 Oxymask 02/21/22 14:09 36.1 C L 71 16 96/55 L 99 Oxymask 02/21/22 09:09 37 C 97 H 20 122/60 97 Room Air O2 Flow Rate 02/21/22 15:25 02/21/22 15:15 02/21/22 15:05 02/21/22 14:55 02/21/22 14:45 02/21/22 14:35 02/21/22 14:25 5 02/21/22 14:15 5 02/21/22 14:09 5 02/21/22 09:09 Pain Intensity Back: Pain Intensity: 6 Right Knee: Pain Intensity: 5 Transfer of Care Handoff Completed per policy Notes Mental Status: alert / awake / arousable Patient Amnestic to Procedure: Yes Nausea / Vomiting: adequately controlled Pain: adequately controlled Airway Patency, RR, SpO2: stable & adequate BP & HR: stable & adequate Hydration State: stable & adequate Neuraxial Anesthesia: was administered and sensory block is resolving Anesthetic Complications: no major complications apparent
[2022-02-21] MEDS ORDERED: MAGNESIUM HYDROXIDE SUSP 30 ML UDC PO PRN (16:11)
[2022-02-21] MEDS ORDERED: bisacodyL 10 MG SUPP PR PRN (16:11)
[2022-02-21] MEDS ORDERED: ALBUTEROL HFA 8 GM INHALER INH PRN (16:11)
[2022-02-21] MEDS ORDERED: HYDROmorphone INJ 0.5 MG/0.5 ML SYR IV PRN (16:11)
[2022-02-21] MEDS ORDERED: METOCLOPRAMIDE HCL INJ 5 MG/ML 2 ML VIAL IV PRN (16:11)
[2022-02-21] MEDS ORDERED: PHARMACY GLYCEMIC MGMT CONSULT PRN (16:11)
[2022-02-21] MEDS ORDERED: GLUCOSE 40% GEL 15 GM TUBE PO PRN (16:30)
[2022-02-21] MEDS ORDERED: CARBOHYDRATES FOR HYPOGLYCEMIA PO PRN (16:30)
[2022-02-21] MEDS ORDERED: GLUCAGON FOR INJ 1 MG VIAL IM PRN (16:30)
[2022-02-21] MEDS ORDERED: DEXTROSE 50% 50 ML SYRINGE IV PRN (16:30)
[2022-02-21] MEDS ORDERED: GLUCOSE 10 TAB/TUBE PO PRN (16:30)
[2022-02-21] MEDS: oxyCODONE HCL IR 5 MG TAB (IMMEDIATE RELEASE) PO PRN (17:27)
[2022-02-21] MEDS: KETOROLAC TROMETHAMINE 15 MG/ML VIAL IV SCH ×2 (17:56→23:33)
[2022-02-21] MEDS: SODIUM CHLORIDE 0.9% 1000ML 1,000 ML IV SCH (17:57)
[2022-02-21] MEDS: INSULIN ASPART PER UNIT SC SCH ×2 (18:16→20:29)
[2022-02-21] MEDS: ceFAZolin 2000MG 2,000 MG/15 ML SYR IV SCH (20:28)
[2022-02-21] MEDS: DOCUSATE SODIUM 100 MG CAP PO SCH (20:29)
[2022-02-21] MEDS: ACETAMINOPHEN 500 MG TAB PO SCH (20:59)
[2022-02-21] MEDS ORDERED: ATORVASTATIN 40 MG TAB PO SCH (21:00)
[2022-02-21] MEDS ORDERED: NON-FORMULARY MEDICATION (Zinc 50 mg Tablet) PO SCH (21:00)
[2022-02-21] MEDS ORDERED: AMITRIPTYLINE HCL 25 MG TAB PO SCH (21:00)
[2022-02-21] MEDS ORDERED: CEROVITE ADV FORMULA TAB PO SCH (21:00)
[2022-02-21] MEDS ORDERED: SENNA 8.6 MG TAB PO SCH (21:00)
[2022-02-21] MEDS: ASPIRIN 81 MG ECTAB PO SCH (21:01)
[2022-02-22] MEDS: oxyCODONE HCL IR 5 MG TAB (IMMEDIATE RELEASE) PO PRN ×2 (00:31→07:35)
[2022-02-22] MEDS: ACETAMINOPHEN 500 MG TAB PO SCH (05:44)
[2022-02-22] MEDS: KETOROLAC TROMETHAMINE 15 MG/ML VIAL IV SCH ×2 (05:44→10:37)
[2022-02-22] MEDS: ceFAZolin 2000MG 2,000 MG/15 ML SYR IV SCH (05:45)
[2022-02-22] MEDS ORDERED: LEVOTHYROXINE SODIUM 75 MCG TABLET PO SCH (06:30)
--- NOTE | 2022-02-22 06:47 | Orthopedic Progress Note ---
Date of Service February 22, 2022 Assessment & Plan (1) Status post right knee replacement: Overall she is doing very well. She is not having much pain in the right knee. She will be seen by physical therapy today for ambulation and range of motion exercises. She is on aspirin for DVT prophylaxis. She can be discharged home later today. She will follow-up with orthopedics in 2 weeks. Subjective Sahara was seen and examined at bedside this morning. Overall she is doing very well. She is not having much pain in the right knee. She has been up and ambulating to the bathroom. She has no complaints.. Review of Systems All systems reviewed & are unremarkable except as noted in HPI & below. Physical Exam On physical examination of the right knee, the dressing is clean and dry. Her leg is out in full extension. She has active dorsiflexion plantarflexion of her right ankle.. Results & Data Results & Data Laboratory Results . Diagnostic Findings Postoperative x-rays of the right knee show the prosthesis to be in anatomic alignment without any evidence of fracture, desiccation, or loosening. PG Care Time/CCT Total # of Minutes Spent Total Time Spent with Patient: Total time spent is greater than 50% in coordination of care (as documented) at patient's floor/unit and/or counseling patient: Coding Level of Care Code 88120 Post Operative Follow-Up Diagnoses Status post right knee replacement Z96.651
--- NOTE | 2022-02-22 06:53 | Discharge Summary ---
Date of Service February 22, 2022 Admission HPI (Per Admitting) Sahara is a pleasant 71-year-old female who has been dealing with chronicworsening right knee pain. X-rays and clinical examination have been diagnostic for advanced arthritis of the right knee. After failing years of conservative treatment, and including multiple injections, she has elected proceed with a right total knee arthroplasty. Admission Exam (Per Admitting) On physical examination the right knee, she has a slight varus deformity. She has range of motion from 5 to 115 degrees. She has no instability. She has pain of the distal medial femoral condyle and over the medial joint line.. Principal Diagnosis Same as "Discharge Diagnosis" noted below under Discharge Instructions. Discharge Exam On physical examination of the right knee, the dressing is clean and dry. Her leg is out in full extension. She has active dorsiflexion plantarflexion of her right ankle.. Discharge Data Procedures Performed Operation Date: 02/21/22 11:30 Actual Procedures p Right Total Knee Arthroplasty(Right) - Leonard Alvarado DO Ordered Studies 02/21/22 10:18 US - OR guided needle placemen Stat Hospital Course (1) Status post right knee replacement: On February 21, 2022 Sahara arrived at [facility] and underwent a right knee replacement without complication. She had a general anesthetic and a right interscalene nerve block. Postoperatively she was started on aspirin for DVT prophylaxis and transferred to the general orthopedic floors. Her hospital course was uneventful. On postop day #1, her vital signs were stable and her pain was well controlled. She was able to participate well with physical therapy doing ambulation and range of motion exercises. She was then discharged home. She will follow-up with orthopedics in 2 weeks. PG Care Time/CCT Total # of Minutes Spent Total Time Spent with Patient: Total time spent is greater than 50% in coordination of care (as documented) at patient's floor/unit and/or counseling patient: Discharge Plan Discharge Items Patient Disposition: Home - Home Health Services Reason For Visit: DJD Right Knee Discharge Diagnosis: Right knee replacement Activity: Per Instructions section Non-emergency contact: Surgeon Call non-emergency contact if: your wound has increased redness and your wound has increased drainage Follow-up/Referrals: Tre Dean DO [Primary Care Provider] - Diet: Regular Addtl Attending Provider Instructions: Activity and Therapy Recommendations: * If you are using [facility] then therapy will be provided at your home until they feel you have accomplished all of your goals. * If you are using [facility] then Physical Therapy will be provided until they feel you are ready to start Outpatient Physical Therapy. * If you are not using home therapy then Outpatient Physical Therapy should start about 3-5 days from your day of surgery. Therapy will last about 6-10 weeks * It is important not to put a pillow under your knee when you are relaxing or sleeping. It is just as important to make sure you are getting your knee perfectly straight as it is to regain your knee bend. * You were shown a series of exercises in the hospital. Do these exercises three times each day including the exercises you were shown in physical therapy. * Get up and walk several times each day. For the first four weeks, try not to stand or walk for more than one hour at a time. If you do stand or walk for more than one hour, you will not hurt anything, but your leg will likely swell. * As you feel comfortable, you may change from the walker or crutches to a cane and then to independent walking. Medications: * Narcotic You will likely be sent home from the hospital with a prescription for the narcotic pain medication that worked best throughout your stay. * Aspirin Most patients will be required to take Aspirin 81mg twice a day for 6 weeks after surgery. This is obtained [id number] and a prescription is not necessary. * Other medications may be prescribed for specific circumstances. If you have any questions, please call the office at . * Resume previous home medications unless otherwise instructed TEDs/Elastic Stockings: The white elastic stockings help limit swelling and prevent blood clots from f orming in your legs.~ The more you wear them, the more they work. Wear them for six weeks. Dressing Care: The dressing can be changed after physical therapy on postop day #1. Daily dry dressing changes for a few days, especially if the incision is still draining some. If the incision is not draining then you may leave the kerri open to air. If there is a little bit of drainage or if the kerri are getting stuck on your clothing then cover the incision with a dry dressing. The kerri will be removed at your 2 week follow-up appointment. Showering: You may shower 5 days from the day of surgery as long as the incision is no longer draining. You may shower with the kerri exposed. Let soapy water run over the kerri and pat them dry. Do not scrub or soak the incision. Things To Watch For: * Drainage from the incision site that occurs more than one week after your surgery. * Increased redness at the incision site. * Fever above 102 degrees Fahrenheit. * Unusual chest pain or shortness of breath. * Call [facility] at with any of the above problems Follow-Up Visit: Follow-up with Dr. Alvarado's PA (Leonard Willoughby) 2-3 weeks after your day of surgery. He will remove your kerri and answer any questions. If you have any additional questions or concerns, Dr Alvarado is usually in the office at the same time and will be available An appointment was probably scheduled when you signed-up for surgery in the office. If you have any questions call Office Instructions: More detailed instructions as well as Frequently Asked Questions were provided in a folder by our office when you signed-up for surgery. Please review these instructions when you get home. If you have any further questions or concerns, please feel free to call the office at [phone] Pending Studies at Discharge: No Stand-Alone Forms: [facility] Medications and DC Order Prescriptions: New oxycodone-acetaminophen 5-325 mg tablet 1 tab PO Q6H PRN (Reason: pain) Qty: 30 0RF Continued insulin asp prt-insulin aspart [Novolog Mix 70-30FlexPen U-100] 100 unit/mL (70-30) insulin pen 16 unit subcut BID Qty: 15 5RF amitriptyline 75 mg tablet 75 mg PO HS Qty: 90 3RF albuterol sulfate 90 mcg/actuation HFA aerosol inhaler 2 puff inhalation QID PRN (Reason: Asthma) Qty: 18 5RF metformin 1,000 mg tablet 1,000 mg PO BID Qty: 180 3RF atorvastatin 80 mg tablet 80 mg PO HS Qty: 90 3RF (DME) Accu-Chek Kirsten Plus test strp Strip See Dose Instructions .ROUTE .MEDSUPPLY Qty: 100 3RF Rx Instructions: As directed to check blood glucose 3 times daily. (DME) insulin syringe-needle U-100 [BD Insulin Syringe] 1 mL 29 gauge x 1/2" syringe See Dose Instructions .ROUTE .MEDSUPPLY Qty: 1 Rx Instructions: As directed calcium 600 mg Capsule 600 mg PO BID ascorbic acid (vitamin C) [Vitamin C] 500 mg Tablet 500 mg PO QAM zinc 50 mg Tablet 25 mg PO HS multivitamin-iron (hematinic) Tablet 1 tab PO HS cholecalciferol (vitamin D3) [Vitamin D3] 25 mcg (1,000 unit) Tablet 25 mcg PO QAM furosemide 40 mg tablet 40 mg PO QAM Label Comments: TAKES QAM levothyroxine 75 mcg tablet 75 mcg PO QAM Label Comments: TAKES QAM amlodipine 10 mg tablet 10 mg PO QAM Label Comments: TAKES QAM losartan 100 mg tablet 100 mg PO QAM Label Comments: TAKES QAM Changed aspirin 81 mg tablet,delayed release (DR/EC) 81 mg PO BID 42 Days Qty: 0 0RF Discontinued hydrocodone-acetaminophen 5-325 mg tablet 1 tab PO TID PRN (Reason: pain) Qty: 90 0RF Discharge Orders: Discharge Order (Routine); Ordered 02/22/22 Ordered By: Leonard Alvarado Admission Data Admit Date/Time: 02/21/22 14:09 Attending Provider: Leonard Alvarado Admit Provider: Leonard Alvarado Primary Care Provider: Tre Dean
[2022-02-22] MEDS: SODIUM CHLORIDE 0.9% 1000ML 1,000 ML IV SCH (07:21)
[2022-02-22] MEDS: DOCUSATE SODIUM 100 MG CAP PO SCH (07:36)
[2022-02-22] MEDS: ASPIRIN 81 MG ECTAB PO SCH (07:37)
[2022-02-22] MEDS: INSULIN ASPART PER UNIT SC SCH (08:41)
[2022-02-22] MEDS ORDERED: LOSARTAN POTASSIUM 50 MG TAB PO SCH (09:00)
[2022-02-22] MEDS ORDERED: amLODIPine BESYLATE 5 MG TAB PO SCH (09:00)
[2022-02-22] MEDS ORDERED: MULTIVITAMIN TAB PO SCH (09:00)
[2022-02-22] MEDS ORDERED: FUROSEMIDE 40 MG TAB PO SCH (09:00)
== END 2022-02-22 11:20 | disposition home or self-care (01) ==
LOC: 3E 08:43 → ASU 08:43
DX: Z68.35 Body mass index [BMI] 35.0-35.9, adult; Z87.891 Personal history of nicotine dependence; Z88.0 Allergy status to penicillin; E66.9 Obesity, unspecified; Z79.4 Long term (current) use of insulin; Z79.899 Other long term (current) drug therapy; M17.11 Unilateral primary osteoarthritis, right knee; Z91.030 Bee allergy status; Z79.84 Long term (current) use of oral hypoglycemic drugs; Z88.8 Allergy status to other drugs, medicaments and biological substances; Z88.6 Allergy status to analgesic agent

== ENCOUNTER 2023-01-21 08:08 | Observation (INO) ==
--- NOTE | 2022-12-17 12:07 | PAT Medication Instructions ---
Medication Instructions Date of Service December 17, 2022 Home Medications Medication Instructions Recorded albuterol sulfate 90 mcg/actuation 2 puff inhalation QID PRN Asthma 09/03/22 aerosol inhaler #18 grams amitriptyline 75 mg tablet 75 mg PO HS #90 tabs 10/18/22 amlodipine 10 mg tablet 10 mg PO QAM #90 tabs 10/18/22 atorvastatin 80 mg tablet 80 mg PO HS #90 tabs 10/18/22 blood sugar diagnostic (Accu-Chek #100 ea 10/18/22 Kirsten Plus test strips) blood-glucose transmitter (Dexcom #1 ea 10/18/22 G6 Transmitter device) furosemide 40 mg tablet 40 mg PO QAM #90 tabs 10/18/22 levothyroxine 75 mcg tablet 75 mcg PO QAM #90 tabs 10/18/22 losartan 100 mg tablet 100 mg PO QAM #90 tabs 10/18/22 metformin 1,000 mg tablet 1,000 mg PO BID #180 tabs 10/18/22 insulin human U-100 NPH-regulr 16 unit (0.16 mL) subcut BID #20 mL 10/29/22 70-30 mix 100 unit/mL subcutaneous susp (Novolin 70/30 U-100 Insulin) hydrocodone 5 mg-acetaminophen 325 1 tab PO TID PRN pain #90 tabs 11/14/22 mg tablet MEDICATION LIST: ascorbic acid (vitamin C) 500 mg tablet (Vitamin C) 500 mg PO QAM calcium 600 mg capsule 600 mg PO BID cholecalciferol (vitamin D3) 25 mcg (1,000 unit) tablet (Vitamin D3) 25 mcg PO QAM zinc 50 mg tablet 25 mg PO HS albuterol sulfate 90 mcg/actuation aerosol inhaler 2 puff inhalation QID PRN Asthma amitriptyline 75 mg tablet 75 mg PO HS amlodipine 10 mg tablet 10 mg PO QAM aspirin 81 mg tablet,delayed release 81 mg PO DAILY atorvastatin 80 mg tablet 80 mg PO HS furosemide 40 mg tablet 40 mg PO QAM levothyroxine 75 mcg tablet 75 mcg PO QAM losartan 100 mg tablet 100 mg PO QAM metformin 1,000 mg tablet 1,000 mg PO BID insulin human U-100 NPH-regulr 70-30 mix 100 unit/mL subcutaneous susp (Novolin 70/30 U-100 Insulin) 16 unit (0.16 mL) subcut BID hydrocodone 5 mg-acetaminophen 325 mg tablet 1 tab PO TID PRN pain cyanocobalamin (vitamin B-12) 2,500 mcg sublingual tablet (Vitamin B-12) 2,500 mcg sublingual QAM multivitamin with iron 1 tab PO HS MEDICATION INSTRUCTIONS: Continue as directed albuterol sulfate 90 mcg/actuation aerosol inhaler 2 puff inhalation QID PRN Asthma (use if needed; BRING TO HOSPITAL) ASK your prescriber and surgeon aspirin 81 mg tablet,delayed release 81 mg PO DAILY DO NOT take the morning of surgery ascorbic acid (vitamin C) 500 mg tablet (Vitamin C) 500 mg PO QAM cholecalciferol (vitamin D3) 25 mcg (1,000 unit) tablet (Vitamin D3) 25 mcg PO QAM furosemide 40 mg tablet 40 mg PO QAM cyanocobalamin (vitamin B-12) 2,500 mcg sublingual tablet (Vitamin B-12) 2,500 mcg sublingual QAM metformin 1,000 mg tablet 1,000 mg PO BID calcium 600 mg capsule 600 mg PO BID losartan 100 mg tablet 100 mg PO QAM Take morning of surgery With a small sip of water, OTHERWISE NOTHING TO EAT OR DRINK AFTER MIDNIGHT: hydrocodone 5 mg-acetaminophen 325 mg tablet 1 tab PO TID PRN pain (if needed) amlodipine 10 mg tablet 10 mg PO QAM levothyroxine 75 mcg tablet 75 mcg PO QAM Take evening before surgery insulin human U-100 NPH-regulr 70-30 mix 100 unit/mL subcutaneous susp (Novolin 70/30 U-100 Insulin) 16 unit (0.16 mL) subcut BID zinc 50 mg tablet 25 mg PO HS atorvastatin 80 mg tablet 80 mg PO HS multivitamin with iron 1 tab PO HS hydrocodone 5 mg-acetaminophen 325 mg tablet 1 tab PO TID PRN pain metformin 1,000 mg tablet 1,000 mg PO BID calcium 600 mg capsule 600 mg PO BID Insulin Dependent Diabetic Patients * Test your blood sugar the morning of surgery * If Blood Sugar is GREATER THAN 150, take HALF of your regular dose of: insulin human U-100 NPH-regulr 70-30 mix 100 unit/mL subcutaneous susp (Novolin 70/30 U-100 Insulin) 16 unit (0.16 mL) subcut BID * If Blood Sugar is LESS THAN 150, DO NOT TAKE ANY: insulin human U-100 NPH- regulr 70-30 mix 100 unit/mL subcutaneous susp (Novolin 70/30 U-100 Insulin) 16 unit (0.16 mL) subcut BID Other Notes CHECK WITH PRESCRIBER FOR INSTRUCTIONS: amitriptyline 75 mg tablet 75 mg PO HS If you have any questions please call us at [phone] or [phone] or [phone] or [phone]
--- NOTE | 2022-12-24 08:20 | Anesthesiology Consultation ---
Date of Service December 24, 2022 Assessment & Plan (1) Encounter for pre-operative examination: Chart Review Chart Review: Acceptable Risk for Surgery (pending routine PCP visit ) and Patient seen in Pre Admission Testing - Awaiting PCP appt 01/13/23 (routine appt) ([place]) - Check BSG AM DOS - Patient is NOT an OPJ candidate Per PAT appt on 12/24/22, no recent illness/disease exposures, illness related symptoms, or recent illness/disease positive tests. Will leave to surgeon's discretion if preop Covid testing needed Right TKA 02/21/22= Done udner SAB At L3-4 with two attempts Teaching & Discussion Pre-Anesthesia Teaching/Discussion Notes: Instructed NPO after midnight before surgery,except medications with 15 cc of water. Medication instructions provided according to the [facility] guidelines. History Surgery Operation Date: 01/21/23 13:00 Proposed Procedures p Left Total Knee Arthroplasty(Left) - Leonard Alvarado, Height/Weight Height: 5 ft 1.5 in Weight: 86.2 kg Allergies Allergy/AdvReac Type Severity Reaction Status Date / Time Penicillins Allergy Severe throat Verified 12/13/22 15:00 swelled hydrochlorothiazide Allergy Intermediate ELEVATED Verified 12/13/22 15:00 RENIN LEVELS naproxen Allergy Intermediate elevated Verified 12/13/22 15:00 renin levels sumatriptan Allergy Intermediate bp Verified 12/13/22 15:00 elevated, tachycardia dexamethasone AdvReac Severe SEIZURES Verified 12/13/22 15:00 bee venom protein (honey bee) AdvReac Unknown Redness of Verified 12/13/22 15:00 Skin Medications Home Medications Medication Instructions Recorded Confirmed Last Taken insulin syringe-needle U-100 1 mL #1 ea 08/24/18 10/18/22 Unknown 29 gauge x 1/2" (BD Insulin Syringe) ascorbic acid (vitamin C) 500 mg 500 mg PO QAM 10/07/19 12/13/22 02/20/22 08:00 tablet (Vitamin C) calcium 600 mg capsule 600 mg PO BID 10/07/19 12/13/22 02/20/22 21:00 cholecalciferol (vitamin D3) 25 25 mcg PO QAM 10/07/19 12/13/22 02/20/22 08:00 mcg (1,000 unit) tablet (Vitamin D3) zinc 50 mg tablet 25 mg PO HS 10/07/19 12/13/22 02/20/22 21:00 albuterol sulfate 90 mcg/actuation 2 puff inhalation QID PRN Asthma 09/03/22 12/13/22 Unknown aerosol inhaler #18 grams amitriptyline 75 mg tablet 75 mg PO HS #90 tabs 10/18/22 12/13/22 Unknown amlodipine 10 mg tablet 10 mg PO QAM #90 tabs 10/18/22 12/13/22 Unknown aspirin 81 mg tablet,delayed 81 mg PO DAILY 10/18/22 12/13/22 Unknown release atorvastatin 80 mg tablet 80 mg PO HS #90 tabs 10/18/22 12/13/22 Unknown blood sugar diagnostic (Accu-Chek #100 ea 10/18/22 10/18/22 Unknown Kirsten Plus test strips) blood-glucose transmitter (Dexcom #1 ea 10/18/22 10/18/22 Unknown G6 Transmitter device) furosemide 40 mg tablet 40 mg PO QAM #90 tabs 10/18/22 12/13/22 Unknown levothyroxine 75 mcg tablet 75 mcg PO QAM #90 tabs 10/18/22 12/13/22 Unknown losartan 100 mg tablet 100 mg PO QAM #90 tabs 10/18/22 12/13/22 Unknown metformin 1,000 mg tablet 1,000 mg PO BID #180 tabs 10/18/22 12/13/22 Unknown insulin human U-100 NPH-regulr 16 unit (0.16 mL) subcut BID #20 mL 10/29/22 12/13/22 Unknown 70-30 mix 100 unit/mL subcutaneous susp (Novolin 70/30 U-100 Insulin) cyanocobalamin (vitamin B-12) 2,500 mcg sublingual QAM 12/13/22 12/13/22 Unknown 2,500 mcg sublingual tablet (Vitamin B-12) multivitamin with iron 1 tab PO HS 12/13/22 12/13/22 Unknown hydrocodone 5 mg-acetaminophen 325 1 tab PO TID PRN pain #90 tabs 12/18/22 Unknown mg tablet Past Medical History Medical History (Updated 12/24/22 @ 12:28 by Kely Waldrop PA-C) Aortic stenosis mild on 01/2022 echo Asthma last used rescue inhaler 08/2022 - controlled and stable Degenerative disc disease Diabetes mellitus, type 2 IDDM- glucose fluctuates Wears Dexcom Difficult intubation h/o glidescope intubation: L reverse TSA 11/12/1920 Grade 2 view, MAC 3 noted lip lac with intact dentition-utilized glidescope 4, ETT 7.5 + PNB. Fibromyalgia Stable History of anxiety History of brain tumor s/p excision- benign Hyperlipidemia Hypertension controlled, stable per pt Hypothyroidism Migraine Peripheral neuropathy Bilateral feet- sensitive to touc Seasonal allergies Seizure Last event 1971 - hx of brain tumor- no issues since- no seizure medications Stage 3 chronic kidney disease Temporomandibular joint disorder NO LOCKING- OCC CLICKING Exercise / Class Metabolic Activity III < 4 Walking/Shop/Light housework (no chest pain or SOB with flat surface ambulation ) Past Family History Family History Grandfather Colorectal cancer Mother Family history of diabetes mellitus Myocardial infarction Unknown Ovarian cancer Sister Congestive heart failure Cataract Father Esophageal cancer Other No family history of adverse response to anesthesia Denies family history of Prostate cancer Breast cancer Past Surgical History Surgical History H/O colonoscopy 01/23/15 H/O craniotomy 1969 BRAIN TUMOR REMOVED H/O knee surgery LEFT X 2 History of appendectomy History of back surgery (~2012) x 2, L3-L4 lumbar decompression and fusion History of carpal tunnel surgery RT/LEFT History of repair of rotator cuff RT History of tonsillectomy and adenoidectomy History of tooth extraction Hx of bilateral cataract extraction Status post reverse arthroplasty of left shoulder (~10/2019) Grade 2 view, MAC 3 noted lip lac with intact dentition-utilized glidescope 4, ETT 7.5 + PNB. Status post total right knee replacement Past Anesthesia History No Hx of Anesthesia Complications, Difficult Airway (with 2019 TSA- glidescope #4 utilized ) and No Family Hx of Anesthesia Complications History of PONV No Hx of PONV and No Hx of Motion Sickness Social History Smoking Status: Former smoker tobacco type: cigarettes Do You Dip or Chew Tobacco: No Smoking End Date: quit 1978 Hx Alcohol Use: No Hx Substance Use: No substance use type: does not use Review of Systems Patient denies chest pain, shortness of breath, dyspnea on exertion, reflux, cough, wheezing, palpitations. No hx of stroke, PA, apnea/snoring. No hx of blood clots or blood transfusions Physical Exam Vital Signs VITALS BP 138/74 P 85 TEMP 98.2 SP02 99% RESP 16 Constitutional no acute distress ENMT Mouth: no TMJ clicking Thyromental Distance: < 3.5 Finger Breadths (3.0) Mallampati Class: III Mouth / Teeth: 2 1. Missing 2. Chipped Missing side teeth and molars and see picture Neck + short neck; neck extension not limited Respiratory normal respiratory effort; no respiratory distress Auscultation: lungs clear to auscultation bilaterally; no wheezes Cardiovascular Rate/Rhythm: regular rate and regular rhythm Heart Sounds: + murmur (III/ murmur ) Vessels: + carotid bruit (faint bilateral bruit vs radiation murmur ) Musculoskeletal Spine: no pain with cervical ROM Extremities: extremities normal to inspection Psychiatric Orientation: alert Lab Results Anesthesia Preop Results Results Anesthesia Widget: 2 WBC 4.56 K/ul (4.8-10.8) L 12/24/22 Hgb 14.5 g/dl (12.0-16.0) 12/24/22 Hct 43.1 % (37.0-47.0) 12/24/22 Plt 148 K/uL (130-400) 12/24/22 Na 143 mmol/L (136-145) 12/24/22 K 3.6 mmol/L (3.5-5.1) 12/24/22 Cl 104 mmol/L (98-107) 12/24/22 CO2 29 mmol/L (21-32) 12/24/22 BUN 14 mg/dl (6-23) 12/24/22 Creat 0.92 mg/dl (0.6-1.2) 12/24/22 Glucose Level 89 mg/dl (70-99(Fasting)) 12/24/22 PT 11.0 Seconds (9.0-12.0) 12/24/22 PTT 27.5 Seconds (21.0-31.0) 12/24/22 INR 1.0 (0.9-1.1) 12/24/22 HA1c 5.6 % (4.5-5.6) 12/24/22 Blood Type O Positive 12/24/22 Antibody Screen NEGATIVE 12/24/22 Testing Electrocardiogram Date: 12/24/22 Findings: + NSR @ (79bpm ) Low voltage QRS Chest X-Ray Date: 12/24/22 Findings: + NAD FINDINGS: Left shoulder arthroplasty is seen. Calcified aortic knob is seen. The lungs are clear. No evidence of pleural effusion or pneumothorax. Echocardiogram Date: 02/12/22 EF: 55-60% LV Function: normal RWMA: + none Other Findings: + LVH (mild/concentric ) and + diastolic dysfunction (Grade I ) Mild valvular aortic stenosis. ROYAL 1.7cm2; AV mean PG 10.9mmHg Compared with study 09/06/2014- mild aortic stenosis now present
--- NOTE | 2023-01-21 06:07 | History & Physical Report ---
Date of Service January 21, 2023 Assessment & Plan (1) Osteoarthritis of left knee: We will proceed with a left total knee arthroplasty. Postoperatively she will be started on aspirin for DVT prophylaxis and kept overnight in the hospital for postoperative medical management. She plans to [facility] upon discharge. History of Present Illness Chief Complaint: Osteoarthritis of the left knee. Primary Care Provider: Tre Dean DO Sahara is a pleasant 72-year-old female who I did a right knee replacement on about a year ago. She has done very well with that. Unfortunately, she is now dealing with left knee pain. Her knee hurts her all the time. She does have a history of long conservative treatment with the left knee. She is really struggling going up and down stairs or walking long distances. X-rays and clinical examination been diagnostic for advanced osteoarthritis of the left knee. After failing conservative treatment, she has elected proceed with a left total knee arthroplasty. Allergies Allergy/AdvReac Type Severity Reaction Status Date / Time Penicillins Allergy Severe throat Verified 01/13/23 10:10 swelled hydrochlorothiazide Allergy Intermediate ELEVATED Verified 01/13/23 10:10 RENIN LEVELS naproxen Allergy Intermediate elevated Verified 01/13/23 10:10 renin levels sumatriptan Allergy Intermediate bp Verified 01/13/23 10:10 elevated, tachycardia dexamethasone AdvReac Severe SEIZURES Verified 01/13/23 10:10 bee venom protein (honey bee) AdvReac Unknown Redness of Verified 01/13/23 10:10 Skin Home Medications Medication Instructions Recorded Confirmed Type insulin syringe-needle U-100 1 mL #1 ea 08/24/18 01/13/23 History 29 gauge x 1/2" (BD Insulin Syringe) ascorbic acid (vitamin C) 500 mg 500 mg PO QAM 10/07/19 01/13/23 History tablet (Vitamin C) calcium 600 mg capsule 600 mg PO BID 10/07/19 01/13/23 History cholecalciferol (vitamin D3) 25 25 mcg PO QAM 10/07/19 01/13/23 History mcg (1,000 unit) tablet (Vitamin D3) zinc 50 mg tablet 25 mg PO HS 10/07/19 01/13/23 History albuterol sulfate 90 mcg/actuation 2 puff inhalation QID PRN Asthma 09/03/22 01/13/23 Rx aerosol inhaler #18 grams amitriptyline 75 mg tablet 75 mg PO HS #90 tabs 10/18/22 01/13/23 Rx amlodipine 10 mg tablet 10 mg PO QAM #90 tabs 10/18/22 01/13/23 Rx aspirin 81 mg tablet,delayed 81 mg PO DAILY 10/18/22 01/13/23 History release atorvastatin 80 mg tablet 80 mg PO HS #90 tabs 10/18/22 01/13/23 Rx blood sugar diagnostic (Accu-Chek #100 ea 10/18/22 01/13/23 Rx Kirsten Plus test strips) blood-glucose transmitter (Dexcom #1 ea 10/18/22 01/13/23 Rx G6 Transmitter device) furosemide 40 mg tablet 40 mg PO QAM #90 tabs 10/18/22 01/13/23 Rx levothyroxine 75 mcg tablet 75 mcg PO QAM #90 tabs 10/18/22 01/13/23 Rx losartan 100 mg tablet 100 mg PO QAM #90 tabs 10/18/22 01/13/23 Rx metformin 1,000 mg tablet 1,000 mg PO BID #180 tabs 10/18/22 01/13/23 Rx insulin human U-100 NPH-regulr 16 unit (0.16 mL) subcut BID #20 mL 10/29/22 01/13/23 Rx 70-30 mix 100 unit/mL subcutaneous susp (Novolin 70/30 U-100 Insulin) cyanocobalamin (vitamin B-12) 2,500 mcg sublingual QAM 12/13/22 01/13/23 History 2,500 mcg sublingual tablet (Vitamin B-12) multivitamin with iron 1 tab PO HS 12/13/22 01/13/23 History hydrocodone 5 mg-acetaminophen 325 1 tab PO TID PRN pain #90 tabs 01/14/23 Rx mg tablet Past Med/Surg History Medical History Seasonal allergies Aortic stenosis mild on 01/2022 echo Difficult intubation h/o glidescope intubation: L reverse TSA 11/12/1920 Grade 2 view, MAC 3 noted lip lac with intact dentition-utilized glidescope 4, ETT 7.5 + PNB. Fibromyalgia Stable Degenerative disc disease Diabetes mellitus, type 2 IDDM- glucose fluctuates Wears Dexcom Hypothyroidism Temporomandibular joint disorder NO LOCKING- OCC CLICKING History of anxiety Peripheral neuropathy Bilateral feet- sensitive to touc History of brain tumor s/p excision- benign Seizure Last event 1971 - hx of brain tumor- no issues since- no seizure medications Migraine Hypertension controlled, stable per pt Hyperlipidemia Asthma last used rescue inhaler 08/2022 - controlled and stable Stage 3 chronic kidney disease Surgical History Hx of bilateral cataract extraction Status post total right knee replacement Status post reverse arthroplasty of left shoulder (~10/2019) Grade 2 view, MAC 3 noted lip lac with intact dentition-utilized glidescope 4, ETT 7.5 + PNB. H/O knee surgery LEFT X 2 History of tonsillectomy and adenoidectomy H/O craniotomy 1968 BRAIN TUMOR REMOVED History of carpal tunnel surgery RT/LEFT H/O colonoscopy 01/23/15 History of back surgery (~2012) x 2, L3-L4 lumbar decompression and fusion History of repair of rotator cuff RT History of appendectomy History of tooth extraction Family History Grandfather Colorectal cancer Mother Family history of diabetes mellitus Myocardial infarction Unknown Ovarian cancer Sister Congestive heart failure Cataract Father Esophageal cancer Other No family history of adverse response to anesthesia Denies family history of Prostate cancer Breast cancer Social History Smoking Status: Former smoker Tobacco Type: Cigarettes Age Started Using Tobacco: 15; Age Quit Using Tobacco: 26; Smoking End Date: quit 1978; Second Hand Exposure: No; Do You Dip or Chew Tobacco: No; Tobacco Cessation Education Requested by Patient: No Hx Alcohol Use: No Hx Substance Use: No Preferred Language: Mozambican Communication Ability: Effective Visual Impairment: No Limitations Hearing Ability: Normal Helmet Hat Sweatband Puncher Required: No Beliefs That Will Affect Care: None marital status: Current Living Situation: Alone Current Living Situation Comment: Lives alone with 3 cats current occupational status: retired How many Children do You have: 1 Other Information That Helps Us Care for You: No Feels Safe at Home: Yes Safety Concerns: Feels Safe At This Time Childhood Exposure to Second-Hand Smoke: Yes Diet: diabetic caffeine: Yes during the past year weight has: remained stable Dental Care, Regularly: No Physical Activity Frequency: 3-4 Times per Week Seatbelt Use: always Sunscreen Use: Yes Assistive Devices: Cane and Glasses Assistive Devices Comment: glasses prn Review of Systems All systems reviewed & are unremarkable except as noted in HPI & below. Physical Exam On physical examination left knee, she is decreased range of motion. She has crepitus with range of motion. She has pain over the distal medial and lateral femoral condyles.. Constitutional WD/WN, vitals as above Eyes PERRL, conjunctivae normal, anicteric sclerae ENMT external ear and nose normal, oropharynx normal Neck trachea midline, no thyromegaly Respiratory normal respiratory effort Cardiovascular RRR, no murmur, no edema Gastrointestinal (Abdomen) normal bowel sounds, soft, nontender, no hepatosplenomegaly Psychiatric A+Ox3, euthymic affect Results & Data Results & Data Laboratory Results . Diagnostic Findings X-rays of the left knee show advanced osteoarthritis with joint space narrowing, osteophyte formation, and qgoh-if-osru articulation.. PG Care Time/CCT Total # of Minutes Spent Total Time Spent with Patient: Total time spent is greater than 50% in coordination of care (as documented) at patient's floor/unit and/or counseling patient: Coding Level of Care Code None Diagnoses Osteoarthritis of left knee M17.12
[~2023-01-21 08:08] MED LIST changes: -ALLERGY Noted to ORDERED Medication SCH; -EPINEPHrine INJ 1 MG/ML AMP ONE; -TRANEXAMIC ACID / 0.7% NACL 1,000 MG/100 ML BAG IV SCH; +[UNRECOGNIZED DRUG - REMARK] SCH; +dexAMETHasone 4 MG TAB PO SCH
[2023-01-21] MEDS ORDERED: PROPOFOL IV EMULSION 10 MG/ML 20 ML VIAL IV ONE (09:37)
[2023-01-21] MEDS ORDERED: MIDAZOLAM HCL 1 MG/ML 2ML VIAL ONE (09:37)
[2023-01-21] MEDS ORDERED: ePHEDrine sulfate 50 MG/ML AMP IV PRN (10:16)
[2023-01-21] MEDS ORDERED: ONDANSETRON INJ 2 MG/ML 2 ML VIAL IV PRN ×2 (10:16→14:49)
[2023-01-21] MEDS ORDERED: fentaNYL citrate PF 100 MCG/2 ML VIAL IV PRN (10:16)
[2023-01-21] MEDS ORDERED: ATROPINE SULFATE 0.1 MG/ML 10ML SYR IV PRN (10:16)
[2023-01-21] MEDS ORDERED: Nursing to Pharmacy Communication SCH (10:30)
[2023-01-21] MEDS ORDERED: PHENYLEPHRINE 100MCG/ML 10ML SYR IV ONE (11:28)
--- NOTE | 2023-01-21 12:56 | Operative Report ---
PG Post Operative Report Pre & Post Diagnosis Operation Date: 01/21/23 10:00 Pre-Op Diagnosis: Degenerative Joint Disease Left Knee Post-Op Diagnosis: Degenerative Joint Disease Left Knee I identified the patient and participated in the time-out.: Yes Procedure Operation Date: 01/21/23 10:00 Actual Procedures p Left Total Knee Arthroplasty(Left) - Leonard Alvarado DO Surgeon Leonard Alvarado DO Column Precaster Romeo Muir PA-C Estimated Blood Loss 30 Findings Consistent with Post-Op Diagnosis Specimens Left femoral and tibial bone Description of Procedure Implants used: I used a Jacky Persona total knee arthroplasty system with a size 8 PS standard femur, E tibia, 31 oval patella, and a size 14 CPS polyethylene bearing. All components were cemented in place with Biomet cement. Sahara arrived [facility] for the above procedure. She was seen in the preoperative holding area and the operative extremity was identified and signed. She was given a preoperative antibiotic, TXA, a spinal anesthetic and an adductor nerve block. She was taken back to the operating room and laid on the table in supine position. She was given basic sedation. The operative knee was then prepped and draped in sterile fashion. A timeout was done, and the patient and the operative extremity was properly identified. A midline incision was made directly over the patella. Dissection was taken down to the extensor mechanism. A midvastus arthrotomy was used. The medial retinaculum was released and the fat pad was mostly excised. The knee was flexed and the ACL, PCL, and meniscus were removed. A drill was sent down the center of the femoral canal followed by an intramedullary colt. Off that colt a distal femoral cutting block was placed. 9 mm was resected off the distal femur at 5 of valgus. A posterior referencing AP sizing guide was then placed on the distal femur. The femur measured to be a size 8. 2 drill holes were placed in 3 of external rotation. A 4-in-1 cutting block was then impacted into place. Anterior, posterior, and chamfer cuts were then made. The proximal tibia was then exposed. An external tibial alignment guide was placed. A tibial cut guide was then anchored in place and the proximal tibia was then resected. The posterior aspect of the knee was then opened up and any additional meniscus fragments and osteophytes were removed. The tibia measured to be a size E. The tibial plate was then placed in the appropriate rotation and the tibia was drilled and punched. Trial components were then placed. I used a size 14 CPS polyethylene insert. The knee was brought through a full range of motion and felt to be stable. The peg holes for the femoral component were then drilled. The patella was then everted and 9 mm was resected off the posterior aspect of the patella. The patella measured to be a size 31 oval. 3 peg holes were then drilled. A trial patella was placed. The knee was once again brought through a full range of motion and felt to be stable. Trial components were then removed. The surrounding soft tissues were injected with 100 cc of an orthopedic pain control cocktail. All components were then cemented into place with Biomet cement. The final polyethylene insert was then snapped into place. Once cement was dry the tourniquet was deflated. Hemostasis was obtained. A dilute betadyne lavage was then done for 3 minutes. The joint was then irrigated with normal saline solution. The midvastus arthrotomy was then closed with #1 Vicryl suture. The skin was closed with 2-0 Vicryl, 3-0V lock suture, and kerri. A soft compressive dressing was placed. She was then transferred to a hospital bed and taken to the postanesthesia care unit in stable condition. She tolerated the procedure well. Romeo Muir PA-C, was present for the entire procedure. He was critical for patient positioning, prepping, draping, retraction exposure, wound closure and application of sterile dressing. I attest to the content of the Intraoperative Record and any orders documented therein. Any exceptions are noted below.
--- NOTE | 2023-01-21 14:39 | Anesthesiology Progress Note ---
Date of Service January 21, 2023 Anesthesia Post Procedure Vital Signs Vital Signs: Temp Pulse Resp BP Pulse Ox O2 Del Method O2 Flow Rate 01/21/23 14:30 64 18 118/72 98 Nasal Cannula 3 01/21/23 14:15 65 16 116/56 L 99 Nasal Cannula 3 01/21/23 14:00 36.5 C 68 16 106/69 99 Nasal Cannula 3 01/21/23 13:50 67 15 118/61 98 Nasal Cannula 3 01/21/23 13:40 74 18 97/72 L 97 Nasal Cannula 3 01/21/23 13:30 68 13 110/63 98 Nasal Cannula 3 01/21/23 13:20 65 16 121/58 L 98 Nasal Cannula 3 01/21/23 13:10 66 15 118/57 L 96 Nasal Cannula 3 01/21/23 13:01 36.4 C L 66 20 114/59 L 96 Nasal Cannula 3 01/21/23 08:30 37.0 C 66 18 146/61 H 96 Room Air Pain Intensity Left Knee: Pain Intensity: 7 Transfer of Care Handoff Completed per policy Notes Mental Status: alert / awake / arousable Patient Amnestic to Procedure: Yes Nausea / Vomiting: adequately controlled Pain: adequately controlled Airway Patency, RR, SpO2: stable & adequate BP & HR: stable & adequate Hydration State: stable & adequate Neuraxial Anesthesia: was administered and sensory block is resolving Anesthetic Complications: no major complications apparent and Pt Satisfied with anesthetic care
--- NOTE | 2023-01-21 14:46 | XRay Report ---
XR knee LT 1 or 2V routine HISTORY: 72 years-old Female Surgical Post Op left knee arthroplasty COMPARISON: 12/03/2022 TECHNIQUE: 2 views of the left knee FINDINGS: Total arthroplasty with patellar resurfacing. Anterior midline skin kerri are present along with ex pected postoperative soft tissue swelling with deep tissue air. IMPRESSION: Total joint arthroplasty with expected postoperative changes. ACT 112: Negative or not required by law. The above report was generated using voice recognition software. It may contain grammatical, syntax o r spelling errors. Electronically signed by: Luis Petersen M.D. 01/21/2023 2:44 PM
[2023-01-21] MEDS ORDERED: PHARMACY GLYCEMIC MGMT CONSULT PRN (14:49)
[2023-01-21] MEDS ORDERED: METOCLOPRAMIDE HCL INJ 5 MG/ML 2 ML VIAL IV PRN (14:49)
[2023-01-21] MEDS ORDERED: bisacodyL 10 MG SUPP PR PRN (14:49)
[2023-01-21] MEDS ORDERED: ALBUTEROL HFA 8 GM INHALER INH PRN (14:49)
[2023-01-21] MEDS ORDERED: NALOXONE HCL 0.4 MG/1 ML VIAL/CARP IV PRN (14:49)
[2023-01-21] MEDS ORDERED: MAGNESIUM HYDROXIDE SUSP 30 ML UDC PO PRN (14:49)
[2023-01-21] MEDS: HYDROmorphone INJ 0.5 MG/0.5 ML SYR IV PRN ×3 (15:11→22:38)
[2023-01-21] MEDS: SODIUM CHLORIDE 0.9% 1,000 ML IV SCH (15:27)
[2023-01-21] MEDS: oxyCODONE HCL IR 5 MG TAB (IMMEDIATE RELEASE) PO PRN ×2 (16:25→20:59)
[2023-01-21] MEDS: INSULIN ASPART PER UNIT CHARGE SC SCH ×2 (17:38→20:29)
[2023-01-21] MEDS: ceFAZolin 2000MG 2,000 MG/15 ML SYR IV SCH (19:46)
[2023-01-21] MEDS: DOCUSATE SODIUM 100 MG CAP PO SCH (19:46)
[2023-01-21] MEDS: ASPIRIN 81 MG ECTAB PO SCH (19:47)
[2023-01-21] MEDS ORDERED: metFORMIN HCL 500 MG TAB PO SCH (21:00)
[2023-01-21] MEDS ORDERED: ATORVASTATIN 40 MG TAB PO SCH (21:00)
[2023-01-21] MEDS ORDERED: AMITRIPTYLINE HCL 25 MG TAB PO SCH (21:00)
[2023-01-21] MEDS ORDERED: SENNA 8.6 MG TAB PO SCH (21:00)
[2023-01-21] MEDS ORDERED: LANTUS PER UNIT CHARGE SC ONE (21:00)
[2023-01-22] MEDS: oxyCODONE HCL IR 5 MG TAB (IMMEDIATE RELEASE) PO PRN ×3 (00:55→10:51)
[2023-01-22] MEDS: SODIUM CHLORIDE 0.9% 1,000 ML IV SCH (01:45)
[2023-01-22] MEDS: ceFAZolin 2000MG 2,000 MG/15 ML SYR IV SCH (03:41)
[2023-01-22] MEDS: HYDROmorphone INJ 0.5 MG/0.5 ML SYR IV PRN ×2 (03:41→07:36)
[2023-01-22] MEDS ORDERED: LEVOTHYROXINE SODIUM 75 MCG TABLET PO SCH (06:30)
[2023-01-22] MEDS: ASPIRIN 81 MG ECTAB PO SCH (08:17)
[2023-01-22] MEDS ORDERED: LOSARTAN POTASSIUM 50 MG TAB PO SCH (09:00)
[2023-01-22] MEDS ORDERED: LANTUS PER UNIT CHARGE SC SCH (09:00)
[2023-01-22] MEDS ORDERED: MULTIVITAMIN TAB PO SCH (09:00)
[2023-01-22] MEDS ORDERED: FUROSEMIDE 40 MG TAB PO SCH (09:00)
[2023-01-22] MEDS ORDERED: amLODIPine BESYLATE 5 MG TAB PO SCH (09:00)
[2023-01-22] MEDS: DOCUSATE SODIUM 100 MG CAP PO SCH (09:10)
[2023-01-22] MEDS: INSULIN ASPART PER UNIT CHARGE SC SCH (09:10)
--- NOTE | 2023-01-22 09:28 | Orthopedic Progress Note ---
Date of Service January 22, 2023 Assessment & Plan (1) Status post left knee replacement: Overall, she is doing quite well today with good pain control over the left knee. She will be seen by physical therapy today for ambulation and range of motion exercises. She is on aspirin for DVT prophylaxis. She can be discharged home later today. She will follow-up with orthopedics in 2 weeks for postoperative care. Subjective . Sahara was seen and examined at bedside this morning in no apparent distress. Overall she is doing quite well left good pain control involving the left knee. She has been up and ambulating to the bathroom. She has no complain ts today. Review of Systems All systems reviewed & are unremarkable except as noted in HPI & below. Physical Exam . On physical examination of the left knee, the dressings are clean, dry, and intact. Her leg is out in full extension. She has active plantarflexion and dorsiflexion of her left ankle. +2 DP and PT pulses. Less than 2-second capillary refill. Normal sensation. Neurovascular intact. Results & Data Results & Data Laboratory Results . Diagnostic Findings . Postoperative x-rays of the left knee show the prosthesis to be in anatomical alignment without any evidence of fracture complication or loosening. PG Care Time/CCT Total # of Minutes Spent Total Time Spent with Patient: Total time spent is greater than 50% in coordination of care (as documented) at patient's floor/unit and/or counseling patient: Coding Level of Care Code 33066 Post Operative Follow-Up Diagnoses Status post left knee replacement Z96.652
--- NOTE | 2023-01-22 09:30 | Discharge Summary ---
Date of Service January 22, 2023 Admission HPI (Per Admitting) Sahara is a pleasant 72-year-old female who I did a right knee replacement on about a year ago. She has done very well with that. Unfortunately, she is now dealing with left knee pain. Her knee hurts her all the time. She does have a history of long conservative treatment with the left knee. She is really struggling going up and down stairs or walking long distances. X-rays and clinical examination been diagnostic for advanced osteoarthritis of the left knee. After failing conservative treatment, she has elected proceed with a left total knee arthroplasty. Admission Exam (Per Admitting) On physical examination left knee, she is decreased range of motion. She has crepitus with range of motion. She has pain over the distal medial and lateral femoral condyles.. Principal Diagnosis Same as "Discharge Diagnosis" noted below under Discharge Instructions. Discharge Exam . On physical examination of the left knee, the dressings are clean, dry, and intact. Her leg is out in full extension. She has active plantarflexion and dorsiflexion of her left ankle. +2 DP and PT pulses. Less than 2-second capillary refill. Normal sensation. Neurovascular intact. Discharge Data Procedures Performed Operation Date: 01/21/23 10:00 Actual Procedures p Left Total Knee Arthroplasty(Left) - Leonard Alvarado DO Ordered Studies 01/21/23 05:00 US - OR guided needle placemen Routine Hospital Course (1) Status post left knee replacement: On January 21, 2023 Sahara arrived at [facility] and underwent a left knee replacement. She had a spinal anesthetic. Postoperatively, she was started on aspirin for DVT prophylaxis and transferred to the general orthopedic floor. Her hospital course was uneventful. On postoperative day #1, her vital signs were stable and her pain was well-controlled. She was able to participate well with physical therapy doing ambulation and range of motion exercises. She was then discharged home. She will follow-up with orthopedics in 2 weeks for postoperative care. PG Care Time/CCT Total # of Minutes Spent Total Time Spent with Patient: Total time spent is greater than 50% in coordination of care (as documented) at patient's floor/unit and/or counseling patient: Discharge Plan Discharge Items Patient Disposition: Home - Home Health Services Reason For Visit: LEFT KNEE REPLACEMENT Discharge Diagnosis: Left knee replacement Activity: Per Instructions section Non-emergency contact: Surgeon Call non-emergency contact if: your wound has increased redness and your wound has increased drainage Follow-up/Referrals: Tre Dean, [Primary Care Provider] - Diet: Regular Addtl Attending Provider Instructions: Activity and Therapy Recommendations: * If you are using [facility] then therapy will be provided at your home until they feel you have accomplished all of your goals. * If you are using [facility] then Physical Therapy will be provided until they feel you are ready to start Outpatient Physical Therapy. * If you are not using home therapy then Outpatient Physical Therapy should start about 3-5 days from your day of surgery. Therapy will last about 6-10 weeks * It is important not to put a pillow under your knee when you are relaxing or sleeping. It is just as important to make sure you are getting your knee perfectly straight as it is to regain your knee bend. * You were shown a series of exercises in the hospital. Do these exercises three times each day including the exercises you were shown in physical therapy. * Get up and walk several times each day. For the first four weeks, try not to stand or walk for more than one hour at a time. If you do stand or walk for more than one hour, you will not hurt anything, but your leg will likely swell. * As you feel comfortable, you may change from the walker or crutches to a cane and then to independent walking. Medications: * Narcotic You will likely be sent home from the hospital with a prescription for the narcotic pain medication that worked best throughout your stay. * Cefadroxil -take the antibiotic twice a day for 10 days to prevent infection. * Aspirin Most patients will be required to take Aspirin 81mg twice a day for 6 weeks after surgery. This is obtained [id number] and a prescription is not necessary. * Other medications may be prescribed for specific circumstances. If you have any questions, please call the office at . * Resume previous home medications unless otherwise instructed TEDs/Elastic Stockings: The white elastic stockings help limit swelling and prevent blood clots from forming in your legs.~ The more you wear them, the more they work. Wear them for six weeks. Dressing Care: The dressing can be changed after physical therapy on postop day #1. Daily dry dressing changes for a few days, especially if the incision is still draining some. If the incision is not draining then you may leave the kerri open to air. If there is a little bit of drainage or if the kerri are getting stuck on your clothing then cover the incision with a dry dressing. The kerri will be removed at your 2 week follow-up appointment. Showering: You may shower 5 days from the day of surgery as long as the incision is no longer draining. You may shower with the kerri exposed. Let soapy water run over the kerri and pat them dry. Do not scrub or soak the incision. Things To Watch For: * Drainage from the incision site that occurs more than one week after your surgery. * Increased redness at the incision site. * Fever above 102 degrees Fahrenheit. * Unusual chest pain or shortness of breath. * Call [facility] at with any of the above problems Follow-Up Visit: Follow-up with Dr. Alvarado's PA (Leonard Willoughby) 2-3 weeks after your day of surgery. He will remove your kerri and answer any questions. If you have any additional questions or concerns, Dr Alvarado is usually in the office at the same time and will be available An appointment was probably scheduled when you signed-up for surgery in the office. If you have any questions call Office Instructions: More detailed instructions as well as Frequently Asked Questions were provided in a folder by our office when you signed-up for surgery. Please review these instructions when you get home. If you have any further questions or concerns, please feel free to call the office at [phone] Pending Studies at Discharge: No Stand-Alone Forms: My [facility] Medications and DC Order Prescriptions: New oxycodone 5 mg Tablet 5 - 10 mg PO Q6 PRN (Reason: pain) Qty: 30 0RF cefadroxil 500 mg capsule 500 mg PO BID 10 Days Qty: 20 0RF Continued albuterol sulfate 90 mcg/actuation HFA aerosol inhaler 2 puff inhalation QID PRN (Reason: Asthma) Qty: 18 5RF Novolin 70/30 U-100 Insulin 100 unit/mL (70-30) suspension 16 unit subcut BID Qty: 20 2RF (DME) insulin syringe-needle U-100 [BD Insulin Syringe] 1 mL 29 gauge x 1/2" syringe See Dose Instructions .ROUTE .MEDSUPPLY Qty: 1 Rx Instructions: As directed (DME) Dexcom G6 Transmitter Device See Rx Instructions .Route Qty: 1 0RF Rx Instructions: As directed amitriptyline 75 mg tablet 75 mg PO HS Qty: 90 3RF (DME) Accu-Chek Kirsten Plus test strp Strip See Dose Instructions .ROUTE .MEDSUPPLY Qty: 100 3RF Rx Instructions: As directed to check blood glucose 3 times daily. amlodipine 10 mg tablet 10 mg PO QAM Qty: 90 1RF atorvastatin 80 mg tablet 80 mg PO HS Qty: 90 1RF furosemide 40 mg tablet 40 mg PO QAM Qty: 90 1RF levothyroxine 75 mcg tablet 75 mcg PO QAM Qty: 90 1RF losartan 100 mg tablet 100 mg PO QAM Qty: 90 1RF metformin 1,000 mg tablet 1,000 mg PO BID Qty: 180 1RF calcium 600 mg Capsule 600 mg PO BID ascorbic acid (vitamin C) [Vitamin C] 500 mg Tablet 500 mg PO QAM zinc 50 mg Tablet 25 mg PO HS cholecalciferol (vitamin D3) [Vitamin D3] 25 mcg (1,000 unit) Tablet 25 mcg PO QAM cyanocobalamin (vitamin B-12) [Vitamin B-12] 2,500 mcg Tablet, Sublingual 2,500 mcg SUBLINGUAL QAM multivitamin with iron Tablet 1 tab PO HS aspirin 81 mg tablet,delayed release (DR/EC) 81 mg PO DAILY 42 Days Qty: 0 0RF Discontinued hydrocodone-acetaminophen 5-325 mg tablet 1 tab PO TID PRN (Reason: pain) Qty: 90 0RF Admission Data Admit Date/Time: 01/21/23 13:01 Attending Provider: Leonard Alvarado Admit Provider: Leonard Alvarado Primary Care Provider: Tre Dean
== END 2023-01-22 11:57 | disposition home health service (06) ==
LOC: 3N 08:08 → ASU 08:08 → 3N 15:08